=== PATIENT | female | born 1985 | race Caucasian/White ===

== ENCOUNTER 2016-05-07 21:55 | Emergency (ER) | payer OTHER ==
[2016-05-07 22:08] VITALS: BP 143/98; PULSE 82; TEMP 98.1; BMI 40.8
[2016-05-07] MEDS ORDERED: KETOROLAC TROMETHAMINE 60 MG/2 ML VIAL IM ONE (23:58)
--- NOTE | 2016-05-07 23:58 | PDOC ---
History of Present Illness - General History Source: Patient Exam Limitations: No Limitations - History of Present Illness Initial Comments: 05/08/16 00:48 The patient is a 31 year old female with significant past medical history of hypertension, asthma, and hypothyroidism who presents to the ED with 3 days of right upper pain. Patient reports her pain is localized in the trapezius region. She states she periodically gets pain and discomfort to the right upper trapezius and neck region. Patient denies trauma, heavy lifting, or physical exertion. Patient denies diaphoresis, lightheadedness, chest pain, SOB, nausea, or vomiting. Patient states she smokes cigarettes, but denies oral contraceptives. She denies any recent travels or sick contacts. She states she recently had given about 2 months ago. The patient denies fever, chills, cough, abdominal pain, and diarrhea. Allergies: penicillin Social History: No alcohol, tobacco, or drug use reported. Past Surgical History: None reported PCP: Dr. Clarissa Ibarra <Mackenzie Ortega - Last Filed: 05/08/16 02:51> - General History Source: Patient <César Leon - Last Filed: 05/08/16 02:56> - General Chief Complaint: Pain Stated Complaint: PAIN Time Seen by Provider: 05/07/16 23:54 Past History <Mackenzie Ortega - Last Filed: 05/08/16 02:51> - Past Medical History Asthma: Yes Cancer: No Cardiac Disorders: No Diabetes: No HTN: Yes Seizures: No Thyroid Disease: Yes (hypo) - Immunization History Immunization Up to Date: Yes - Psycho/Social/Smoking Cessation Hx Anxiety: No Suicidal Ideation: No Smoking History: Former smoker Have you smoked in the past 12 months: Yes Number of Cigarettes Smoked Daily: 5 Information on smoking cessation initiated: No Hx Alcohol Use: No Drug/Substance Use Hx: No Substance Use Type: None Hx Substance Use Treatment: No <César Leon - Last Filed: 05/08/16 02:56> - Past Medical History Allergies/Adverse Reactions: Allergies Allergy/AdvReac Type Severity Reaction Status Date / Time Penicillins Allergy Mild Difficulty Verified 05/07/16 22:04 Breathing Home Medications: Ambulatory Orders Levothyroxine [Synthroid -] 100 mcg PO DAILY 12/11/14 Vit/Iron Fumarate/FA [ Tablet] 1 each PO DAILY 01/29/16 Salmeterol/Fluticasone [Advair 100Mcg/50Mcg -] 1 inh IH BID 01/29/16 Ferrous Sulfate 325 mg PO BID 03/19/16 Nifedipine ER [Procardia XL -] 60 mg PO DAILY #30 tab.er.24 03/25/16 Review of Systems - Review of Systems Able to Perform ROS?: Yes Comments:: 05/08/16 00:48 CONSTITUTIONAL: Absent: fever, no chills, no fatigue EYES: Absent: visual changes ENT: Absent: ear pain, no sore throat CARDIOVASCULAR: Absent: chest pain, no palpitations RESPIRATORY: Absent: cough, no SOB GI: Absent: abdominal pain, no nausea, no vomiting, no constipation, no diarrhea GENITOURINARY: Absent: dysuria, no frequency, no hematuria MUSKULOSKELETAL: +right upper arm pain, neck pain Absent: back pain SKIN: Absent: rash NEURO: Absent: headache <Mackenzie Ortega - Last Filed: 05/08/16 02:51> *Physical Exam - Vital Signs Last Vital Signs Temp Pulse Resp BP Pulse Ox 98.1 F 82 20 143/98 99 05/07/16 22:05 05/07/16 22:05 05/07/16 22:05 05/07/16 22:05 05/07/16 22:05 - Physical Exam Comments: 05/08/16 00:48 GENERAL: Well-appearing, well-nourished. No apparent distress. HEENT: Normocephalic, atraumatic. PERRL, EOM intact. CARDIOVASCULAR: Normal S1, S2. Regular rate and rhythm. PULMONARY: Clear to auscultation bilaterally. ABDOMEN: Soft, non-distended, non-tender. EXTREMITIES: Normal ROM in all four extremities. No gross deformities. Mildly tender in the right trapezius, right posteriorly shoulder and right tricep region. No erythema. Good ROM to the right shoulder and elbow. SKIN: Warm, dry. No rash NEUROLOGICAL: No focal neurological deficits. <Mackenzie Ortega - Last Filed: 05/08/16 02:51> - Vital Signs Last Vital Signs Temp Pulse Resp BP Pulse Ox 98.1 F 82 20 143/98 99 05/07/16 22:05 05/07/16 22:05 05/07/16 22:05 05/07/16 22:05 05/07/16 22:05 <César Leon - Last Filed: 05/08/16 02:56> ED Treatment Course - ADDITIONAL ORDERS Additional order review: Laboratory Results 05/08/16 00:03 Urine HCG, Qual Negative - RADIOLOGY Radiograph Interpretation: 05/08/16 01:13 EXAM: VENOUS DUPLEX UNILATERAL Reviewed by Imaging second facing baster: No evidence for DVT right upper extremity. 05/08/16 02:52 EXAM: CT CERVICAL SPINE WITHOUT CONTRAST Reviewed by Imaging second facing baster: Small right central protrusion-type disc herniation C2-C3 causing minimal canal stenosis. Posterior disc-osteophyte complexes C4-C5 through C6-C7 causing areas of minimal to moderate canal stenosis and neural foraminal stenosis, worst at C6-C7. No acute fracture or malalignment. Straightening of cervical lordosis, possibly due to positioning or muscle spasm. - Medications Given in the ED: ED Medications Discontinued Medications Generic Name Dose Route Start Last Admin Trade Name Titusq PRN Reason Stop Dose Admin Ketorolac Tromethamine 60 mg 05/07/16 23:58 05/08/16 00:09 Toradol Injection - IM 05/07/16 23:59 60 mg ONCE ONE Administration <Mackenzie Ortega - Last Filed: 05/08/16 02:51> Medical Decision Making - Medical Decision Making 05/08/16 02:54 Dr. Leon: The scribe's documentation has been prepared under my direction and personally reviewed by me in its entirery. I confirm that the note above accurately reflects all work, treatment, procedures, and medical decision making performed by me. US of right arm and Ct scan of cervical spine are negative. Pt doesn't want any pain medication as she says they make her very sedated. Pt advised to follow up with her doctor if symptoms don't get better <César Leon - Last Filed: 05/08/16 02:56> *DC/Admit/Observation/Transfer - Attestations Scribe Attestion: 05/08/16 00:48 Documentation prepared by Mackenzie Ortega, acting as medical observer for César Leon MD <Mackenzie Ortega - Last Filed: 05/08/16 02:51> - Discharge Dispostion Admit: No <César eLon - Last Filed: 05/08/16 02:56> Diagnosis at time of Disposition: Right arm pain - Discharge Dispostion Disposition: HOME Condition at time of disposition: Stable - Referrals Referrals: Clarissa Ibarra [Primary Care Provider] - Donavon Roberts MD [Staff Physician] - - Patient Instructions Printed Discharge Instructions: DI for Arm Pain Additional Instructions: Please follow up with your primary care doctor for re-evaluation if symptoms don 't improve.
[2016-05-08] MEDS ORDERED: KETOROLAC TROMETHAMINE 60 MG/2 ML VIAL ONE (00:05)
== END 2016-05-08 03:11 | disposition home or self-care (01) ==
LOC: JER 21:55 → JERFT 21:55 → JER 05-08 03:11
PROC: 3E0233Z Introduction of Anti-inflammatory into Muscle, Percutaneous Approach (ICD-10-PCS; principal; 2016-05-07)
DX: M79.601 Pain in right arm (principal); Z87.891 Personal history of nicotine dependence; J45.909 Unspecified asthma, uncomplicated; I10 Essential (primary) hypertension; E03.9 Hypothyroidism, unspecified
CPT/HCPCS: 72125-TC; 84703; 93971; 96372; 99281-25

== ENCOUNTER 2017-05-11 09:12 | Emergency (ER) | payer OTHER ==
[2017-05-11 09:23] VITALS: BP 169/94; PULSE 95; TEMP 98.1; BMI 43.4
--- NOTE | 2017-05-11 09:52 | PDOC ---
History of Present Illness - General Chief Complaint: Toothache Stated Complaint: TOOTHACHE Time Seen by Provider: 05/11/17 09:44 History Source: Patient Exam Limitations: No Limitations - History of Present Illness Initial Comments: 05/11/17 09:47 32-year-old female currently 9 weeks presents to the ED with right upper quadrant tooth pain which is causing her difficulty sleeping eating and speaking secondary to discomfort. Patient states has had this pain intimately for the past few years which has worsened in severity over the past week. Patient states has been Tylenol with minimal affect and is concerned that she may have an infection now. Patient states has prolonged visiting the dentist since she had a bad experience with her last visit. Patient states does have insurance and plans to find a new dentist this week. Patient denies headache, ear pain, dizziness, fever, chills or difficulty swallowing. Timing/Duration: getting worse, intermittent (2 years) Severity: moderate Associated Symptoms: reports: denies symptoms Past History - Travel Traveled outside of the country in the last 30 days: No - Past Medical History Allergies/Adverse Reactions: Allergies Allergy/AdvReac Type Severity Reaction Status Date / Time Penicillins Allergy Mild Difficulty Verified 05/11/17 09:23 Breathing Home Medications: Ambulatory Orders Levothyroxine [Synthroid -] 100 mcg PO DAILY 12/11/14 Vit/Iron Fum/Folic AC [ Tablet] 1 each PO DAILY 01/29/16 Salmeterol/Fluticasone [Advair 100Mcg/50Mcg -] 1 inh IH BID 01/29/16 Ferrous Sulfate 325 mg PO BID 03/19/16 Nifedipine ER [Procardia XL -] 60 mg PO DAILY #30 tab.er.24 03/25/16 Asthma: Yes Cancer: No Cardiac Disorders: No COPD: No Diabetes: No HTN: Yes Seizures: No Thyroid Disease: Yes (hypo) - Reproductive History Is Patient Now?: Yes - Immunization History Immunization Up to Date: Yes - Suicide/Smoking/Psychosocial Hx Smoking History: Former smoker Have you smoked in the past 12 months: Yes Number of Cigarettes Smoked Daily: 5 Information on smoking cessation initiated: No Hx Alcohol Use: No Drug/Substance Use Hx: No Substance Use Type: None Hx Substance Use Treatment: No Patient Lives Alone: No Lives with/in: spouse/SO Review of Systems - Review of Systems Able to Perform ROS?: Yes Constitutional: No: Symptoms Reported HEENTM: Yes: Mouth Pain, Dental Problems Respiratory: No: Symptoms reported Integumentary: No: Lumps Neurological: No: Headache, Dizziness *Physical Exam - Vital Signs Last Vital Signs Temp Pulse Resp BP Pulse Ox 98.1 F 95 H 18 169/94 99 05/11/17 09:20 05/11/17 09:20 05/11/17 09:20 05/11/17 09:20 05/11/17 09:20 - Physical Exam General Appearance: Yes: Nourished, Appropriately Dressed. No: Apparent Distress HEENT: positive: Other (#2 tooth with noted buildup of plaque at the gumline along with gingivitis. Noted amalgam filling covering surface of tooth. No obvious abscess noted.surrounding teeth intact) Cardiovascular: positive: Regular Rhythm, Regular Rate. negative: Murmur Integumentary: positive: Normal Color, Warm, Moist Neurologic: positive: Motor Strength 5/5 (ambulatory) Medical Decision Making - Medical Decision Making 05/11/17 09:50 Patient currently 9 weeks complaining of right upper quadrant tooth pain. Patient will be prescribed amoxicillin along with Tylenol Extra Strength. Patient encouraged contact a local dentist for evaluation. *DC/Admit/Observation/Transfer Diagnosis at time of Disposition: Pain, dental - Discharge Dispostion Disposition: HOME Condition at time of disposition: Good - Referrals Referrals: Clarissa Ibarra [Primary Care Provider] - - Patient Instructions Printed Discharge Instructions: DI for Dental Pain, DI for Tooth Decay Additional Instructions: Please take medication as prescribed until completed. May apply heating pad to the affected area. Please follow-up with dentist as discussed. Return to ED if any given time if your symptoms worsen prior to your appointment. - Post Discharge Activity
== END 2017-05-11 10:06 | disposition home or self-care (01) ==
LOC: JERFT 09:12
DX: O99.89 Other specified diseases and conditions complicating pregnancy, childbirth and the puerperium (principal); K08.89 Other specified disorders of teeth and supporting structures; O16.1 Unspecified maternal hypertension, first trimester; O99.281 Endocrine, nutritional and metabolic diseases complicating pregnancy, first trimester; E03.9 Hypothyroidism, unspecified; O99.511 Diseases of the respiratory system complicating pregnancy, first trimester; Z3A.09 9 weeks gestation of pregnancy
CPT/HCPCS: 99281-25

== ENCOUNTER 2017-11-30 19:00 | Emergency (ER) | payer OTHER ==
[2017-11-30 19:24] VITALS: BMI 45.7
[2017-11-30 22:19] VITALS: BP 125/83; PULSE 93; TEMP 98
== END 2017-11-30 21:20 | disposition home or self-care (01) ==
LOC: JER 19:00
DX: Z53.21 Procedure and treatment not carried out due to patient leaving prior to being seen by health care provider (principal)
CPT/HCPCS: 99281-25

== ENCOUNTER 2017-12-15 08:20 | Inpatient (IN) | payer OTHER ==
[2017-12-15 09:36] LABS: URINE APPEARANCE CLOUDY; URINE BILIRUBIN NEGATIVE (<2.0 mg/dL); URINE COLOR YELLOW; URINE GLUCOSE (UA) NEGATIVE (NEGATIVE); URINE KETONE NEGATIVE (NEGATIVE); URINE LEUK ESTERASE 3+ (NEGATIVE); URINE NITRITE NEGATIVE (NEGATIVE); URINE PROTEIN 2+ (NEGATIVE); URINE UROBILINOGEN NEGATIVE mg/dL (0.2-1.0)
[2017-12-15 09:38] LABS: BASO % 0.4 % (0-2.0); EOS % 1.6 % (0-4.5); HEMATOCRIT 31.1 % (32.4-45.2); HEMOGLOBIN 10.3 GM/dL (10.7-15.3); LYMPH % 19.6 % (8-40); MCH 29.1 pg (25.7-33.7); MCHC 33.2 g/dl (32.0-36.0); MEAN CELL VOLUME 87.8 fl (80-96); MEAN PLT VOLUME 7.5 fl (7.5-11.1); MONO % 7.9 % (3.8-10.2); NEUT % 70.5 % (42.8-82.8); PLATELET COUNT 403 K/MM3 (134-434); RBC 3.54 M/mm3 (3.60-5.2); RDW 14.2 % (11.6-15.6); WHITE BLOOD COUNT 15.4 K/mm3 (4.0-10.0)
[2017-12-15 09:39] LABS: EPI CELLS MODERATE /HPF (FEW); URINE BACTERIA RARE /hpf (NONE SEEN); URINE MUCUS RARE
[2017-12-15 09:47] LABS: INR 0.88 (0.83-1.09); PROTHROMBIN TIME (PATIENT) 10.4 SEC (9.7-13.0)
[2017-12-15 09:50] LABS: ACTIVATED PTT 27.9 SECONDS (25.2-36.5)
[2017-12-15] MEDS ORDERED: BUTORPHANOL TARTRATE 1 MG/ML VIAL IVPB ONE (10:02)
[2017-12-15 10:07] LABS: ALBUMIN 2.5 g/dl (3.4-5.0); ALK PHOS 139 U/L (45-117); ANION GAP 6 MMOL/L (8-16); BILIRUBIN,TOTAL 0.3 mg/dL (0.2-1); BLOOD UREA NITROGEN 9 mg/dL (7-18); CALCIUM 9.4 mg/dL (8.5-10.1); CHLORIDE 108 mmol/L (98-107); CO2 23 mmol/L (21-32); CREATININE 0.7 mg/dL (0.55-1.3); GAMMA GLUTAMYL TRANSPEPTIDASE 19 U/L (5-85); GLUCOSE,RANDOM 103 mg/dL (74-106); POTASSIUM 4.1 mmol/L (3.5-5.1); SGOT/AST 12 U/L (15-37); SGPT/ALT 16 U/L (13-61); SODIUM 136 mmol/L (136-145); TOT PROT 6.4 g/dl (6.4-8.2); URIC ACID 6.3 mg/dL (2.6-7.2)
--- NOTE | 2017-12-15 10:09 | HP ---
Past Medical History - Admission Chief Complaint: IOL for CHTN History of Present Illness: 32yo @ 38wks here for IOL for CHTN. Preg c/b CHTN, hypothyroidism, obesity - Past Medical History Cardiovascular: Yes: HTN Pulmonary: Yes: Asthma ...: 4 ...Para: 3 ...Term: 3 ...: 0 ... Weeks Gestation by Dates: 38.0 ...EDC by Dates: 12/29/17 Endocrine: Yes: Hypothyroidism - Past Surgical History Hx Myomectomy: No Hx Transabdominal Cerclage: No - Smoking History Smoking history: Never smoked Have you smoked in the past 12 months: No Aproximately how many cigarettes per day: 5 - Alcohol/Substance Use Hx Alcohol Use: No History of Substance Use: reports: None - Social History Usual Living Arrangement: Yes: With Spouse ADL: Independent History of Recent Travel: No Home Medications - Allergies Allergies/Adverse Reactions: Allergies Allergy/AdvReac Type Severity Reaction Status Date / Time Penicillins Allergy Severe Difficulty Verified 12/15/17 09:05 Breathing pollen extracts Allergy Mild Itching Verified 12/15/17 09:05 dust Allergy Mild Itching Uncoded 12/15/17 09:05 - Home Medications Home Medications: Ambulatory Orders Levothyroxine [Synthroid -] 137 mcg PO DAILY 12/11/14 Vit/Iron Fum/Folic AC [ Tablet] 1 each PO DAILY 01/29/16 Salmeterol/Fluticasone [Advair 100Mcg/50Mcg -] 1 inh IH BID 01/29/16 Ferrous Sulfate 325 mg PO BID 03/19/16 Albuterol Sulfate Inhaler - [Ventolin Hfa Inhaler -] 1 - 2 inh PO QID 12/15/17 Aspirin [ASA -] 81 mg PO DAILY 12/15/17 Cetirizine HCl [Zyrtec -] 10 mg PO DAILY 12/15/17 Review of Systems - Review of Systems Constitutional: denies: No Symptoms, Chills, Diaphoresis, Fever, Lethargy, Loss of Appetite, Malaise, Night Sweats, Unintentional Wgt. Loss, Weakness, Other Eyes: denies: No Symptoms, Blind Spots, Blurred Vision, Double Vision, Eye Pain , Floaters, Photophobia, Recent Change in Vision, Other HENT: denies: No Symptoms, Difficult Swallowing, Ear Discharge, Ear Pain, Epistaxis, Gingival Bleeding, Hearing Loss, Mouth Swelling, Nasal Congestion, Ocular Prosthesis, Throat Pain, Toothache, Ringing in Ears, Other Neck: denies: No Symptoms, Decreased ROM, Lumps, Pain on Movement, Stiffness, Swollen Glands, Tenderness, Other Cardiovascular: denies: No Symptoms, Chest Pain, Edema, Palpitations, Shortness of Breath, Other Respiratory: denies: No Symptoms, Cough, Exercise Intolerance, Hemoptysis, Orthopnea, PND, Snoring, SOB, SOB on Exertion, Wheezing, Other Gastrointestinal: denies: No Symptoms, Abdominal Pain, Bloating, Constipation, Diarrhea, Dysphagia, Indigestion, Melena, Nausea, Rectal Bleeding, Vomiting, Vomiting Blood, Other Genitourinary: denies: No Symptoms, Burning, Discharge, Dysuria, Flank Pain, Frequency, Hematuria, Incontinence, Lesions, Menses, Pain, Testicular Mass, Testicular Pain, Testicular Swelling, Urgency, Vaginal Bleeding, Other Breasts: denies: No Symptoms Reported, See HPI, Breast Implants, Discharge from Nipple, Lumps, Pain, Skin Changes, Other Musculoskeletal: denies: No Symptoms, Back Pain, Crepitus, Decreased ROM, Extremity Pain, Joint Pain, Joint Swelling, Muscle Pain, Muscle Cramps, Muscle Weakness, Other Integumentary: denies: No Symptoms, Blister, Bruising, Change in Color, Eczema, Erythema, Incision, Lesions, Lump, Pallor, Pruritis, Rash, Wound, Other Neurological: denies: No Symptoms, Change in LOC, Change in Speech, Confusion, Dizziness, Headache, Incoordination, Numbness, Parasthesia, Pre-Existing Deficit , Seizure, Syncope, Tremors, Unsteady Gait, Weakness, Other Endocrine: denies: No Symptoms, Excessive Sweating, Flushing, Increased Hunger, Increased Thirst, Intolerance to Cold, Intolerance to Heat, Unexplained Weight Gain, Unexplained Weight Loss, Other Hematology/Lymphatic: denies: No Symptoms, Easily Bruised, Excessive Bleeding, Swollen Glands, Other Psychiatric: denies: No Symptoms, Altered Sleep Pattern, Anxiety, Depression, Hallucinations, Panic, Paranoia, Suicidal, Other Physical Exam - Maternity Constitutional: No: Well Nourished, No Distress, Calm, Anxious, Ashen, Cachectic , Diaphoresis, Mild Distress, Moderate Distress, Severe Distress, Obese, Pallor , Poor Hygeine, Thin, Other Eyes: No: WNL, Conjunctiva Clear, EOM Intact, Cataracts, Diplopia, Occular Prosthesis, PERRL, Ptosis, Sclera Icterus, Tearing, Other HENT: No: WNL, Atraumatic, Normocephalic, Drooling, Epistaxis, Hoarseness, Nasal Congestion, Pharyngeal Erythema, Rhinnorhea, Thrush, Tonsillar Exudate, Other Neck: No: WNL, Supple, Trachea Midline, Decreased ROM, Lymphadenopathy, Rigid, Tenderness, Thyromegaly, Other Cardiovascular: No: WNL, Regular Rate and Rhythm, Bradycardia, Tachycardia, Pulse Irregular, Bruit, JVD, Gallop, Murmur, Rub, S1, S2, S3, S4, Varicosities, Other Breast(s): No: WNL, Left, Right, Breast Implants, Dimpling, Discharge from Nipple, Gynecomastia, Mass, Nipple Inversion, Skin Changes, Other - Abdominal Exam/OB Number of Fetuses: Single Presentation: Vertex Contractions: Yes Regularity: Irregular Intensity: Mild Monitor Mode: External Category: I Accelerations: Uniform Decelerations: None - Vaginal Exam/OB Vaginal Bleediing: No Speculum Exam: No Dilatation (cm): 4 Amniotic Membrane Status: Intact - Physical Exam Edema: Yes - Labs Lab Results: CBC, BMP 12/15/17 09:15 Assessment/Plan 32yo @ 38.0wks here for IOL for CHTN -Admit to L&D -IVFs -PIH labs, wnl -Pitocin/AROM induction -Cat 1 tracing -Anticipate Lyndsay Abrams MD
[2017-12-15] MEDS ORDERED: OXYTOCIN 30 UNITS in 0.9% NS 30 UNIT/500 ML INFUS.BAG IVPB SCH (10:15)
[2017-12-15] MEDS ORDERED: ELECTROLYTE-148 SOLN 1,000 ML IV SCH (10:15)
[2017-12-15 10:22] VITALS: BMI 45.7
[2017-12-15] MEDS ORDERED: OXYTOCIN 30 UNITS in 0.9% NS 30 UNIT/500 ML INFUS.BAG IVPB ONE (10:52)
--- NOTE | 2017-12-15 14:47 | PN ---
Progress Note, Labor Vaginal Exam #1 Labor Exam Date: 12/15/17 Labor Exam Time: 14:46 Heart Rate (range): Cat 1 Dilatation: 4 Effacement (%): 50 Amniotic Membrane Status: Ruptured Presentation: Vertex/Position Station: -3 (Forebag AROM'd, clear fluid) Remarks: AROM forebag, clears Continue Pitocin Anticipate Zackary Abrams MD
--- NOTE | 2017-12-15 16:17 | PN ---
Progress Note, Labor Vaginal Exam #2 Labor Exam Date: 12/15/17 Labor Exam Time: 16:15 Dilatation: 5 Effacement (%): 70 Amniotic Membrane Status: Ruptured Presentation: Vertex/Position Station: -3 (Pt getting more uncomfortable FHT moderate variability, + accels, one late decel to 100's with good recovery Anticipate CHRISTIANE Abrams MD )
[2017-12-15] MEDS ORDERED: BUTORPHANOL TARTRATE 1 MG/ML VIAL ONE ×2 (16:59)
[2017-12-15] MEDS ORDERED: FENTANYL/BUPIVACAINE/NS/PF - PCEA - 50 ML DISP.SYRIN EP ONE (19:54)
[2017-12-15] MEDS ORDERED: OXYTOCIN 20 UNITS in 0.9% NS 20 UNIT/1,000 ML INFUS.BAG IV ONE ×2 (20:23→21:50)
[2017-12-15] MEDS ORDERED: LIDOCAINE HCL 1% PRESERVATIVE FREE - 30ML VIAL ONE (20:35)
[2017-12-15] MEDS: OXYTOCIN 20 UNITS in 0.9% NS 20 UNIT/1,000 ML INFUS.BAG IV SCH ×2 (20:45→22:12)
[2017-12-15] MEDS ORDERED: ACETAMINOPHEN 325 MG TABLET (FP) PO PRN (20:52)
[2017-12-15] MEDS ORDERED: BENZOCAINE 20% 57 GM BOTTLE TP PRN (20:52)
[2017-12-15] MEDS ORDERED: BENZOCAINE 28 GM HEMORRHOIDAL OINTMENT TP PRN (20:52)
[2017-12-15] MEDS ORDERED: METHYLERGONOVINE MALEATE 0.2 MG/1 ML AMP IM PRN (20:52)
[2017-12-15] MEDS ORDERED: BISACODYL 10 MG SUPP.RECT RC PRN (20:52)
[2017-12-15] MEDS ORDERED: IBUPROFEN 600 MG TABLET (FP) PO PRN (20:52)
[2017-12-15] MEDS ORDERED: WITCH HAZEL 50% (TUCKS) 40 PAD/JAR PAD TP PRN (20:52)
--- NOTE | 2017-12-15 20:52 | PN ---
Delivery - Delivery Vaginal Delivery: Spontaneous Episiotomy/Laceration: None EBL (cc): 250 Delivery, Single - Feeding Plan Initial Plan: Elected not to breastfeed exclusively throughout hospitalization Remarks - Remarks Remarks: Normal spontaneous vaginal delivery of a live infant boy over intact perineum. Nose / Oropharynx suctioned @ perineum. Nuchal cord x 1 clamped and cut. Placenta expelled spontaneously intact.
[2017-12-16] MEDS: FERROUS SO4 325 MG TABLET (FP) PO SCH ×3 (00:32→21:52)
[2017-12-16 08:43] LABS: BASO % 0.5 % (0-2.0); EOS % 0.8 % (0-4.5); HEMATOCRIT 29.2 % (32.4-45.2); HEMOGLOBIN 9.7 GM/dL (10.7-15.3); LYMPH % 17.9 % (8-40); MCH 29.1 pg (25.7-33.7); MCHC 33.1 g/dl (32.0-36.0); MEAN CELL VOLUME 87.9 fl (80-96); MEAN PLT VOLUME 7.6 fl (7.5-11.1); MONO % 5.6 % (3.8-10.2); NEUT % 75.2 % (42.8-82.8); PLATELET COUNT 358 K/MM3 (134-434); RBC 3.32 M/mm3 (3.60-5.2); RDW 13.8 % (11.6-15.6); WHITE BLOOD COUNT 19.1 K/mm3 (4.0-10.0)
[2017-12-16] MEDS ORDERED: FLU VACCINE QUAD 60 MCG/0.5 ML (MDV 18-19) IM ONE (10:00)
[2017-12-16] MEDS: PRENATAL VITAMINS W/ FOLIC ACID TABLET (FP) PO SCH (10:30)
--- NOTE | 2017-12-16 10:56 | PN ---
Post Progress Note - Subjective Subjective: 32 yo Para 4 status post vaginal delivery, seen and evaluated. Doing well. Post Day: 1 Type of Delivery: Vital Signs: Vital Signs Temperature 98.2 F 12/16/17 09:22 Pulse Rate 75 12/16/17 09:22 Respiratory Rate 20 12/16/17 09:22 Blood Pressure 145/71 12/16/17 09:22 O2 Sat by Pulse Oximetry (%) Breast Exam: Yes: Soft Uterus: Yes: Fundus Firm Abdomen/GI: Yes: Abdomen soft, Tolerating PO Lochia: Yes: Rubra Lochia, amount: Moderate Extremities: Yes: Calves non-tender Perineum: Yes: Intact Activity: Ambulating - Labs Labs: CBC WBC 19.1 K/mm3 (4.0-10.0) H 12/16/17 07:56 RBC 3.32 M/mm3 (3.60-5.2) L 12/16/17 07:56 Hgb 9.7 GM/dL (10.7-15.3) L 12/16/17 07:56 Hct 29.2 % (32.4-45.2) L 12/16/17 07:56 MCV 87.9 fl (80-96) 12/16/17 07:56 MCH 29.1 pg (25.7-33.7) 12/16/17 07:56 MCHC 33.1 g/dl (32.0-36.0) 12/16/17 07:56 RDW 13.8 % (11.6-15.6) 12/16/17 07:56 Plt Count 358 K/MM3 (134-434) 12/16/17 07:56 MPV 7.6 fl (7.5-11.1) 12/16/17 07:56 Absolute Neuts (auto) 14.3 K/mm3 (1.5-8.0) H 12/16/17 07:56 Neutrophils % 75.2 % (42.8-82.8) 12/16/17 07:56 Lymphocytes % 17.9 % (8-40) 12/16/17 07:56 Monocytes % 5.6 % (3.8-10.2) 12/16/17 07:56 Eosinophils % 0.8 % (0-4.5) 12/16/17 07:56 Basophils % 0.5 % (0-2.0) 12/16/17 07:56 Nucleated RBC % 0 % (0-0) 12/16/17 07:56 Retic Count 1.85 % (0.5-1.5) H D 12/15/17 09:15 Haptoglobin 208 mg/dL (34-200) H 12/15/17 09:15 Problem List - Problems (1) Status post normal vaginal delivery Code(s): [id number] - Assessment/Plan Status post vaginal delivery Stable Continue routine care
[2017-12-16] MEDS ORDERED: SENNOSIDES/DOCUSATE COMBO (SENNA PLUS) TABLET (UD) PO PRN (22:00)
[2017-12-16] MEDS: OXYTOCIN 20 UNITS in 0.9% NS 20 UNIT/1,000 ML INFUS.BAG IV SCH (23:12)
--- NOTE | 2017-12-17 08:09 | DS ---
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 Vital Signs: Vital Signs Temperature 99.2 F 12/16/17 22:00 Pulse Rate 90 12/16/17 22:00 Respiratory Rate 18 12/16/17 22:00 Blood Pressure 129/68 12/16/17 22:00 O2 Sat by Pulse Oximetry (%) Constitutional: Yes: Well Nourished Eyes: Yes: Conjunctiva Clear HENT: Yes: Atraumatic Neck: Yes: Supple Cardiovascular: Yes: Regular Rate and Rhythm Respiratory: Yes: Regular Gastrointestinal: Yes: Normal Bowel Sounds ...Rectal Exam: Yes: WNL Renal/: Yes: WNL Pelvis: Yes: WNL External Genitalia: Yes: Normal Vaginal Exam: Yes: Normal Cervix: Yes: Normal Uterus: Yes: Firm ....Post : Yes: Uterus firm, Moderate lochia serosa Breast(s): Yes: WNL Musculoskeletal: Yes: WNL Extremities: Yes: WNL Neurological: Yes: Alert, Oriented ...Motor Strength: WNL Psychiatric: Yes: Alert, Oriented Labs: CBC, BMP 12/16/17 07:56 12/15/17 09:15 Delivery - Delivery Vaginal Delivery: Spontaneous Type of Anesthesia: None Episiotomy/Laceration: None EBL (cc): 250 Delivery, Single - Stages of Labor Date 1st Stage Initiatied: 12/15/17 Time 1st Stage Initiated: 17:00 Date 2nd Stage Initiated: 12/15/17 Time 2nd Stage Initiated: 20:30 Date of Delivery: 12/15/17 Time of Delivery: 20:39 Time Placenta Delivered: 20:41 - Condition of Digital Publishing Specialist/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 Technician Present: [place]: [employer] hancock Infant Gender: Male Weight: 6 lb 10 oz Position: Right, OA Total Hours ROM (Hrs/Mins): 8HOUR/29MIN - 1 Minute Total Score: 9 5 Minutes Total Score: 9 - Feeding Plan Initial Plan: Elected not to breastfeed exclusively throughout hospitalization Discharge Summary Reason For Visit: INDUCTION OF LABOR Current Active Problems Status post normal vaginal delivery (Acute) Procedures: Principal: Normal spontaneous vaginal delivery Hospital Course: Routine care Condition: Good - Instructions Diet, Activity, Other Instructions: Physical activity Resume your normal everyday activity as tolerated no heavy lifting or exercise until seen by your surgeon. You may walk unlimited maulik of and climb stairs. You may resume driving the car when you feel safe and comfortable behind the wheel. No sexual activity as instructed. Wound care If you have a bandage, leave it on, and keep dry for 48-72 hours. After that time discard the outer bandage. If they are tapes on the skin under the out of bandage leave them in place. They will peel off in the next 7 to 10 days. Do Not Peel them off. You may shower the day after surgery. If there are tapes present on the skin, you may shower over them. Diet There are no dietary restrictions. Eat healthy, high-fiber foods. Drink 6 to 8 glasses of liquid each day. This will assist in keeping your bowels are regular. Pain management You may take Tylenol or acetaminophen or Ibuprofen (for example, Motrin, Advil etc.) from my pain prescription medication is ordered should be taken as prescribed for moderate to severe pain. Call MD for any of the following: Severe pain not relieved by medication Fever of 101 or higher Excessive bleeding or drainage on dressing Inability to urinate Disposition: HOME - Home Medications Comprehensive Discharge Medication List: Ambulatory Orders Levothyroxine [Synthroid -] 137 mcg PO DAILY 12/11/14 Vit/Iron Fum/Folic AC [ Tablet] 1 each PO DAILY 01/29/16 Salmeterol/Fluticasone [Advair 100Mcg/50Mcg -] 1 inh IH BID 01/29/16 Ferrous Sulfate 325 mg PO BID 03/19/16 Albuterol Sulfate Inhaler - [Ventolin Hfa Inhaler -] 1 - 2 inh PO QID 12/15/17 Aspirin [ASA -] 81 mg PO DAILY 12/15/17 Cetirizine HCl [Zyrtec -] 10 mg PO DAILY 12/15/17
[2017-12-17 09:55] VITALS: PULSE 85; TEMP 98.1
[2017-12-17] MEDS ORDERED: LABETALOL HCL 200 MG TABLET (FP) PO ONE (10:15)
[2017-12-17] MEDS: FERROUS SO4 325 MG TABLET (FP) PO SCH (10:23)
[2017-12-17] MEDS: PRENATAL VITAMINS W/ FOLIC ACID TABLET (FP) PO SCH (10:23)
[2017-12-17 11:06] LABS: URINE APPEARANCE SLCLOUDY; URINE BILIRUBIN NEGATIVE (<2.0 mg/dL); URINE COLOR LTYELLOW; URINE GLUCOSE (UA) NEGATIVE (NEGATIVE); URINE KETONE NEGATIVE (NEGATIVE); URINE LEUK ESTERASE 2+ (NEGATIVE); URINE NITRITE NEGATIVE (NEGATIVE); URINE PROTEIN 1+ (NEGATIVE); URINE UROBILINOGEN NEGATIVE mg/dL (0.2-1.0)
[2017-12-17 11:07] LABS: RETICULOCYTES 2.16 % (0.5-1.5)
[2017-12-17 11:10] LABS: EPI CELLS FEW /HPF (FEW); URINE MUCUS RARE
[2017-12-17 11:32] LABS: URIC ACID 6.8 mg/dL (2.6-7.2)
[2017-12-17 12:31] VITALS: BP 139/75
== END 2017-12-17 14:00 | disposition home or self-care (01) | DRG 560 ==
LOC: JLDR 08:20 → J3W 22:45
PROVIDERS: ADMIT Obstetrics & Gynecology; ATTEND Obstetrics & Gynecology
PROC: 10E0XZZ Delivery of Products of Conception, External Approach (ICD-10-PCS; principal; 2017-12-15)
PROC: 3E0P7VZ Introduction of Hormone into Female Reproductive, Via Natural or Artificial Opening (ICD-10-PCS; 2017-12-15)
DX: O10.02 Pre-existing essential hypertension complicating childbirth (principal); O69.81X0 Labor and delivery complicated by cord around neck, without compression, not applicable or unspecified; O99.283 Endocrine, nutritional and metabolic diseases complicating pregnancy, third trimester; E03.9 Hypothyroidism, unspecified; O26.893 Other specified pregnancy related conditions, third trimester; J45.909 Unspecified asthma, uncomplicated; Z3A.38 38 weeks gestation of pregnancy; Z37.0 Single live birth
CPT/HCPCS: 36415; 59409; 80053; 81003; 81015; 82977; 83010; 84450; 84460; 84550; 85025; 85032; 85044; 85610; 85730; 86593; 86850; 86900; 86901

== ENCOUNTER 2017-12-24 16:45 | Emergency (ER) | payer OTHER ==
[2017-12-24] MEDS ORDERED: ALBUTEROL SO4 2.5/IPRATROPIUM 0.5 INH SOL 3 ML VIAL.NEB. NEB ONE ×3 (16:56→17:57)
--- NOTE | 2017-12-24 16:56 | PDOC ---
Rapid Medical Evaluation Time Seen by Provider: 12/24/17 16:53 Medical Evaluation: Allergies Allergy/AdvReac Type Severity Reaction Status Date / Time Penicillins Allergy Severe Difficulty Verified 12/15/17 09:05 Breathing pollen extracts Allergy Mild Itching Verified 12/15/17 09:05 dust Allergy Mild Itching Uncoded 12/15/17 09:05 12/24/17 16:53 I have performed a brief in-person evaluation of this patient. The patient presents with a chief complaint of: cough x10 days Pertinent physical exam findings: End-expiratory wheezes present. Speaking full sentences. I have ordered the following: urine, CXR, nebs The patient will proceed to the ED for further evaluation. Discharge Disposition - Diagnosis Cough - Referrals - Patient Instructions - Post Discharge Activity
[2017-12-24 16:57] VITALS: BP 176/76; PULSE 56; TEMP 98.4; BMI 44.4
[2017-12-24] MEDS ORDERED: DEXAMETHASONE LIQUID 0.5 MG/5 ML 240 ML BULK BOTTLE PO ONE (17:34)
[2017-12-24 17:36] LABS: URINE APPEARANCE SLCLOUDY; URINE BILIRUBIN NEGATIVE (<2.0 mg/dL); URINE COLOR YELLOW; URINE GLUCOSE (UA) NEGATIVE (NEGATIVE); URINE KETONE NEGATIVE (NEGATIVE); URINE LEUK ESTERASE 2+ (NEGATIVE); URINE NITRITE NEGATIVE (NEGATIVE); URINE PROTEIN 2+ (NEGATIVE); URINE UROBILINOGEN NEGATIVE mg/dL (0.2-1.0)
[2017-12-24] MEDS ORDERED: DEXAMETHASONE SOD PHOSPHATE 10 MG/1 ML VIAL ONE (17:43)
[2017-12-24 17:44] LABS: EPI CELLS RARE /HPF (FEW); URINE MUCUS RARE
[2017-12-24] MEDS: ALBUTEROL SO4 2.5/IPRATROPIUM 0.5 INH SOL 3 ML VIAL.NEB. NEB SCH ×4 (18:09→19:24)
--- NOTE | 2017-12-24 18:54 | PDOC ---
History of Present Illness - General Chief Complaint: Asthma Stated Complaint: ASTHMA, COLD SYMPTONS,CHEST PAIN Time Seen by Provider: 12/24/17 16:53 - History of Present Illness Initial Comments: 12/24/17 18:53 32-year-old female with hypertension hypothyroidism presents for 2 weeks worth of exacerbation of asthma Past History - Past Medical History Allergies/Adverse Reactions: Allergies Allergy/AdvReac Type Severity Reaction Status Date / Time Penicillins Allergy Severe Difficulty Verified 12/15/17 09:05 Breathing pollen extracts Allergy Mild Itching Verified 12/15/17 09:05 dust Allergy Mild Itching Uncoded 12/15/17 09:05 Home Medications: Ambulatory Orders Levothyroxine [Synthroid -] 137 mcg PO DAILY 12/11/14 Vit/Iron Fum/Folic AC [ Tablet] 1 each PO DAILY 01/29/16 Salmeterol/Fluticasone [Advair 100Mcg/50Mcg -] 1 inh IH BID 01/29/16 Ferrous Sulfate 325 mg PO BID 03/19/16 Albuterol Sulfate Inhaler - [Ventolin Hfa Inhaler -] 1 - 2 inh PO QID 12/15/17 Aspirin [ASA -] 81 mg PO DAILY 12/15/17 Cetirizine HCl [Zyrtec -] 10 mg PO DAILY 12/15/17 Asthma: Yes (ventolin) Cancer: No Cardiac Disorders: No COPD: No Diabetes: No HTN: Yes Seizures: No Thyroid Disease: Yes (hypothyroidism - on meds) - Surgical History Cholecystectomy: No Neurologic Surgery: No - Immunization History Immunization Up to Date: Yes - Suicide/Smoking/Psychosocial Hx Smoking History: Former smoker Have you smoked in the past 12 months: No Number of Cigarettes Smoked Daily: 5 Information on smoking cessation initiated: No Hx Alcohol Use: No Drug/Substance Use Hx: No Substance Use Type: None Hx Substance Use Treatment: No Review of Systems - Review of Systems Respiratory: Yes: Cough, Wheezing *Physical Exam - Vital Signs Last Vital Signs Temp Pulse Resp BP Pulse Ox 98.4 F 56 L 16 176/76 H 98 12/24/17 16:54 12/24/17 16:54 12/24/17 16:54 12/24/17 16:54 12/24/17 16:54 - Physical Exam Comments: 12/24/17 18:54 HEAD: NC/AT EYES: Conjuntiva clear Ears: Canals and TM's normal NOSE: No d/c THROAT: Moist mucous membrances, oral pharanx clear, uvula midline NECK: Supple without adenopathy CARDIAC: S1 S2 LUNGS: Diffuse wheezing ABDOMEN: Soft NT ND MS: Full ROM in all joints without edema NEUROLOGIC: No gross sensory or motor deficits, NVID SKIN: Normal color and temperature no lesions or rashes ED Treatment Course - ADDITIONAL ORDERS Additional order review: Laboratory Results 12/24/17 12/24/17 17:15 17:15 Urine Color Yellow Urine Appearance Slcloudy Urine pH 5.0 Ur Specific [place] 1.019 Urine Protein 2+ H Urine Glucose (UA) Negative Urine Ketones Negative Urine Blood 2+ H Urine Nitrite Negative Urine Bilirubin Negative Urine Urobilinogen Negative Ur Leukocyte Esterase 2+ H Urine WBC (Auto) 36 Urine RBC (Auto) 10 Ur Epithelial Cells Rare Urine Mucus Rare Urine HCG, Qual Negative - Medications Given in the ED: ED Medications Discontinued Medications Generic Name Dose Route Start Last Admin Trade Name Freq PRN Reason Stop Dose Admin Albuterol/Ipratropium 1 amp 12/24/17 16:56 12/24/17 17:25 Duoneb - NEB 12/24/17 16:57 1 amp ONCE ONE Administration Dexamethasone 10 mg 12/24/17 17:34 12/24/17 17:46 Decadron Liquid - PO 12/24/17 17:35 10 mg ONCE ONE Administration Medical Decision Making - Medical Decision Making 12/24/17 18:52 Continued wheezing after 3 duo nebs will give one more Tx and transfer to main ER should wheezing continue. 12/24/17 19:14 wheezing cleared after 4th duo neb *DC/Admit/Observation/Transfer Diagnosis at time of Disposition: Cough, Asthma exacerbation - Discharge Dispostion Disposition: HOME Condition at time of disposition: Stable Decision to Admit order: No - Referrals Referrals: Obi Gregg MD [Staff Physician] - - Patient Instructions Printed Discharge Instructions: Asthma -- Adult Additional Instructions: Return to the emergency room should symptoms worsen or go unresolved. Please continue your home medications as directed. Follow-up with pulmonology in one to 2 days for further evaluation and treatment options. - Post Discharge Activity
== END 2017-12-24 19:25 | disposition home or self-care (01) ==
LOC: JERFT 16:45
PROC: 3E0F7GC Introduction of Other Therapeutic Substance into Respiratory Tract, Via Natural or Artificial Opening (ICD-10-PCS; principal; 2017-12-24)
DX: J45.901 Unspecified asthma with (acute) exacerbation (principal); R05 Cough
CPT/HCPCS: 81003; 81015; 84703; 99281-25

== ENCOUNTER 2017-12-30 09:57 | Inpatient (IN) | payer OTHER ==
--- NOTE | 2017-12-30 10:26 | PDOC ---
History of Present Illness - General Chief Complaint: Blood Pressure Problem Stated Complaint: BLOOD PRESSURE PROBLEM Time Seen by Provider: 12/30/17 10:25 History Source: Patient Exam Limitations: No Limitations - History of Present Illness Initial Comments: Pt is a 32 yo F, presenting with HTN emergency/pre-eclampsia. Pt is , and delivered 12/15/2017, normal vaginal delivery (no epidural), @38 weeks. Pt states she has had HTN during her prior and this , with max systolic in 170s. She states her BP is WNL between pregnancies (~120s/80s). She went to her PCP yesterday (Dr. Weathers) for SOB, associated with chest congestion and cough. Her BP was 180s/90s, she was given .1 mg clonidine, and her BP increased to 220s. Pt was supposed to come straight over to the ER, but pt went home instead. She has also started smoking cigarettes again due to stress. Pt denies any prior estrogen use, recent surgery, and recent travel. She denies any LE pain and she says her b/l LE swelling is similar to what she experienced during . Pt denies any vision changes, chest pain, SOB, nausea/vomiting , abdominal pain, or diarrhea/constipation. Pt has history of asthma and hypothyroidism, and [facility]ation, which showed systolic BP in 170s at that time. Pt denies alcohol and other drug use. She has been smoking cigarettes again after . Pt denies recent travel and other sick contacts. 12/30/17 11:46 12/30/17 13:05 Past History - Travel Traveled outside of the country in the last 30 days: No Close contact w/someone who was outside of country & ill: No - Past Medical History Allergies/Adverse Reactions: Allergies Allergy/AdvReac Type Severity Reaction Status Date / Time Penicillins Allergy Severe Difficulty Verified 12/30/17 10:14 Breathing pollen extracts Allergy Mild Itching Verified 12/30/17 10:14 dust Allergy Mild Itching Uncoded 12/30/17 10:14 Home Medications: Ambulatory Orders Levothyroxine [Synthroid -] 137 mcg PO DAILY 12/11/14 Vit/Iron Fum/Folic AC [ Tablet] 1 each PO DAILY 01/29/16 Salmeterol/Fluticasone [Advair 100Mcg/50Mcg -] 1 inh IH BID 01/29/16 Ferrous Sulfate 325 mg PO BID 03/19/16 Albuterol Sulfate Inhaler - [Ventolin Hfa Inhaler -] 1 - 2 inh PO QID 12/15/17 Aspirin [ASA -] 81 mg PO DAILY 12/15/17 Cetirizine HCl [Zyrtec -] 10 mg PO DAILY 12/15/17 Labetalol HCl [Normodyne -] 200 mg PO BID 12/30/17 Asthma: Yes (ventolin) Cancer: No Cardiac Disorders: No COPD: No CHF: No Diabetes: No HTN: Yes (gestational HTN) Seizures: No Thyroid Disease: Yes (hypothyroidism - on meds) - Surgical History Cholecystectomy: No Neurologic Surgery: No - Immunization History Immunization Up to Date: Yes - Suicide/Smoking/Psychosocial Hx Smoking History: Former smoker Have you smoked in the past 12 months: No Number of Cigarettes Smoked Daily: 5 Information on smoking cessation initiated: No Hx Alcohol Use: No Drug/Substance Use Hx: No Substance Use Type: None Hx Substance Use Treatment: No Review of Systems - Review of Systems Able to Perform ROS?: Yes Is the patient limited [place] proficient: No Constitutional: Yes: Weight Stable. No: Chills, Diaphoresis, Fever, Loss of Appetite, Malaise, Weakness HEENTM: Yes: Other (tension-like headache, frontal and extending towards temples ). No: Blurred Vision, Recent change in vision, Double Vision, Nose Congestion , Tinnitus, Nose Bleeding, Throat Pain, Throat Swelling, Difficulty Swallowing Respiratory: Yes: Cough (dry cough), Shortness of Breath (SOB associated with cough). No: Orthopnea, Wheezing, Productive cough Cardiac (ROS): No: Chest Pain, Edema, Irregular Heart Rate, Lightheadedness, Palpitations, Syncope, Chest Tightness ABD/GI: Yes: Abdominal Distended (recent ). No: Blood Streaked Bowels, Constipated, Diarrhea, Nausea, Poor Appetite, Poor Fluid Intake, Rectal Bleeding , Vomiting, Abdominal cramping : No: Burning, Dysuria, Discharge, Frequency, Flank Pain, Hematuria, Incontinence, Pain, Urgency Musculoskeletal: No: Back Pain, Joint Pain Integumentary: No: Change in Color, Erythema, Rash Neurological: Yes: Headache (tension-like frontal headache, radiating to temples ). No: Numbness, Paresthesia, Pre-Existing Deficit, Seizure, Tingling, Tremors , Weakness, Unsteady Gait, Ataxia, Dizziness Psychiatric: No: Sleep Pattern Change, Change in Appetite Endocrine: No: Increased Urine, Change in Weight Hematologic/Lymphatic: No: Anemia, Blood Clots, Easy Bleeding, Easy Bruising All Other Systems: Reviewed and Negative *Physical Exam - Vital Signs Last Vital Signs Temp Pulse Resp BP Pulse Ox 98.7 F 95 H 18 214/109 H 100 12/30/17 10:14 12/30/17 10:14 12/30/17 10:14 12/30/17 10:14 12/30/17 10:14 - Physical Exam General Appearance: Yes: Nourished, Appropriately Dressed, Obese. No: Apparent Distress (pt lying comfortably, able to answer all questions appropriately. HTN , but pt stable.) HEENT: positive: EOMI, [place], Normal ENT Inspection, Normal Voice, Symmetrical, Pharynx Normal, Hearing Grossly Normal. negative: Scleral Icterus (R), Scleral Icterus (L), Pharyngeal Erythema, Tonsillar Exudate, Tonsillar Erythema, Nasal Congestion Neck: positive: Trachea midline, Normal Thyroid, Supple. negative: Tender, Rigid, Carotid bruit, Lymphadenopathy (R), Lymphadenopathy (L) Respiratory/Chest: positive: Lungs Clear, Normal Breath Sounds. negative: Chest Tender, Respiratory Distress, Accessory Muscle Use, Crackles, Wheezing, Plerual Rub Cardiovascular: positive: Regular Rhythm, Regular Rate, S1, S2, Edema (mild b/l pitting pedal edema, pt states chronic). negative: JVD, Murmur, Tachycardia Vascular Pulses: Carotid (R): 4+, Carotid (L): 4+ Gastrointestinal/Abdominal: positive: Normal Bowel Sounds, Soft, Protuberent. negative: Tender, Flat, Organomegaly, Pulsatile Mass, Distended, Guarding, Rebound Rectal Exam: positive: deferred Lymphatic: negative: Adenopathy, Tenderness Musculoskeletal: positive: Normal Inspection. negative: CVA Tenderness Extremity: positive: Normal Capillary Refill, Normal Inspection, Normal Range of Motion, Pelvis Stable, Pedal Edema (mild b/l pitting pedal edema, pt states chronic). negative: Tender, Calf Tenderness, Erythema Integumentary: positive: Normal Color, Dry, Warm. negative: Jaundice, Clammy, Diaphoresis, Rash Neurologic: positive: entertainment musician II-XII NML intact, Fully Oriented, Alert, Normal Mood/ Affect, Normal Response, Motor Strength 5/5. negative: EOM Palsy, Facial Droop , Numbness Deep Tendon Reflexes: Knee (L): 3+, Knee (R): 3+ Heart Score/ECG Review - History History: Slightly suspicious - Electrocardiogram EKG: Normal - Age Age: </= 45 - Risk Factors Risk Factors Heart Score: Yes Hx Hypertension, Yes Smoking History Based on the list above the patient has:: 1-2 risk factors - Troponin Troponin: </= normal limit - Score Heart Score - Total: 1 - [place]: Normal - P and ND Delta Wave(s) Present: No WPW: No - QRS Increased Voltage: Precordial Leads (V3-V6, possible LVH) Poor R Wave Progression: No Q Wave Present: No ED Treatment Course - LABORATORY CBC & Chemistry Diagram: 12/30/17 10:40 12/30/17 10:40 Medical Decision Making - Medical Decision Making Pt was seen at bedside, also will be seen by attending Dr. Wheat. Pt presenting with HTN emergency/pre-eclampsia. Pt is , and delivered 12/15/2017, normal vaginal delivery (no epidural), @38 weeks. Pt states she has had HTN during her prior and this , with max systolic in 170s. She went to her PCP yesterday (Dr. Weathers) for SOB, associated with chest congestion and cough. Her BP was 180s/90s, she was given .1 mg clonidine, and her BP increased to 220s. Pt was supposed to come straight over to the ER, but pt went home instead. She has also started smoking cigarettes again due to stress. Pt denies any prior estrogen use, recent surgery, and recent travel. She denies any LE pain and she says her b/l LE swelling is similar to what she experienced during . Pt denies any vision changes, chest pain, SOB, nausea/vomiting , abdominal pain, or diarrhea/constipation. Pt has history of asthma and hypothyroidism, and was [facility] for asthma exacerbation, which showed systolic BP in 170s at that time. On presentation: BP 214/109, HR 95, O2 100& on RA. PE showed mild b/l pitting pedal edema, clear lung sounds, no chest wall tenderness. Considering gestational HTN vs hypertensive emergency vs pre-eclampsia. Low suspicion of PE, as pt saturation 100% and symptoms sound associated with potential URI vs acute HF. Ordered work-up including CBC, CMP, Mg, Phos, coags, type & screen, ECG, troponin, serum b-hcg and chest x-ray. Will continue to reassess pt and monitor for symptomatic improvement. 12/30/17 10:50 Financial Cost Analyst will page pts OB (Dr. Lyndsay Abrams) to ask if they have any further recommendations or requests for tests/interventions. 12/30/17 10:53 Ordered 10 mg IV Labetalol and 4 g Mg for eclampsia and to reduce BP. Awaiting call from Dr. Abrams. CBC: WBC 11.6 UA 1+ protein, 1+ LE, WBC 10 Pending CMP, trop, and coags. ECG showed NSR, increased voltage QRS in V3-V6 (possible LVH), normal intervals. 12/30/17 11:[address] Bolivar (OB), who stated to hold the 4 g Mg until pt is evaluated by OB team. He agreed with 10 mg IV Labetalol, and suggested adding 30 mg PO Procardia XL and 650 mg Tylenol PO for pain. Orders were placed with nursing staff understanding of changes. We will continue to monitor BP and reassess as necessary. Dr. Wheat spoke with Dr. Abrams (OB), who agrees with Dr. Bolivar's plan and stated that proteinuria has occurred with pts pregnancies in the past (baseline 2+/3+ proteinuria). Awaiting the rest of lab results before paging hospitalist team for admission ( hospitalist admits for Dr. Weathers). 12/30/17 11:41 Repeat BP 198/93 (improving). Awaiting troponin and BNP. 12/30/17 12:26 BNP 5287, Trop .02, Beta hcg 4.5 Possible new HF, considering BNP and pt complaints of SOB. Pt receiving chest x- ray now. Paging hospitalist team for admission. 12/30/17 12:57 Repeat BP 190/90 (trending down slowly). Pt states headache improving. Pt getting Echo now. Ordered urine creatinine. 12/30/17 13:[address] Razmzan to update, who agreed with plan for Echo. 12/30/17 13:19 Spoke with admitting team (Malcolm) who will come down to see the pt; pt will be admitted to Dr. Simeon. 12/30/17 13:32 [id number] RAD/CHEST X-RAY PORTABLE* Shortness of breath. Angle AP view of the chest Unremarkable contour of the cardiomediastinal silhouette. The left costophrenic angle is obscured by the soft tissues of the chest. No evidence of blunting of the right costophrenic angle. No evidence of pneumonia. No pneumothorax seen. The pulmonary vasculature is normal. Impression. Soft tissue of the chest projecting over the left lung base, unable to evaluate for left pleural effusion. Follow-up x-ray with improved inspiration, positioning recommended. 12/30/17 13:34 BP stable with systolic 190s, pt states headache has improved. Admitting team at bedside. Awaiting bed upstairs. 12/30/17 14:53 Urine protein 48, Urine creatinine 102. 12/30/17 15:00 *DC/Admit/Observation/Transfer Diagnosis at time of Disposition: hypertension, Hypertensive emergency, Status post normal vaginal delivery - Discharge Dispostion Condition at time of disposition: Stable Decision to Admit order: Yes - Referrals - Patient Instructions - Post Discharge Activity
--- NOTE | 2017-12-30 10:54 | PDOC ---
Attending Attestation - Resident Resident Name: ZaneSharon - ED Attending Attestation I have performed the following: I have examined & evaluated the patient, The case was reviewed & discussed with the resident, I agree w/resident's findings & plan, Exceptions are as noted - HPI HPI: 12/30/17 10:54 32y F , sp vaginal delivery 2 weeks ago, hx of preeclampsia with prior presens with complaint of hypertension. pt states she has been having slightly elevated BP, was started on labetalol last week, went to see her doctor yesterday and given clonidine due to her BP -wwas referred to the ED but pt came today instead. The pt endorses mild pressure like hadache that is relatively severe since , without associated vision changes, n/v, numbness/tingling/weakness. Pt endorses mild sob/cough since the day after her delivery - and feels 'chest congstion', no signs of hemoptysis or greenish sputum, nasal congestion, pt also notes some sob with ambulation. Pt denie any significant LE edema, states she had some during her , but no significant change. pt denies cp, abd pain, vag bleeding/discyarge, diarrhea, dysuria. GENERAL: The patient is awake, alert, and fully oriented, Nontoxic - in no acute distress. HEAD: Normocephalic, atraumatic. EYES: extraocular movements intact, sclera anicteric, conjunctiva clear. ENT: Normal voice, Moist mucous membranes. NECK: Normal range of motion, supple LUNGS: Breath sounds equal, clear to auscultation bilaterally. No wheezes, no rhonchi, no rales. HEART: Regular rate and rhythm, normal S1 and S2 without murmur, rub or gallop. ABDOMEN: Soft, nontender, No guarding, no rebound. No CVA tenderness EXTREMITIES: Normal range of motion, +1 pitting edema b/l in ankles, neg calf tenderness and neg homans NEUROLOGICAL: No facial assymetry, Normal speech, moving all 4 extreities sptonaneously and symmetrically PSYCH: Normal mood, normal affect. SKIN: Warm, Dry, normal turgor, - Physicial Exam PE: 12/30/17 11:45 see above - Critical Care Time Total Critical Care Time: 45 Critical Care Statement: The care of this patient involved high complexity decision making to prevent further life threatening deterioration of the patient 's condition and/or to evaluate & treat vital organ system(s) failure or risk of failure. - Medical Decision Making 12/30/17 11:45 32y F 2 weeks s/p deliver presents with hypertnesion, headache. Neurologically intact and the patient no acute distress. Concern for hypertensive emergency versus preeclampsia Blood work obtained The patient given IV labetalol for blood pressure control Considered starting of magnesium - however after discussion with OB (dr. Aragon ) - recommended starting Procardia and the labetalol but requests we hold the magnesium and until he evaluates her. 12/30/17 11:48 case also discussed with Dr. Abrams - notes pt has a long standing hitsory of proteinuria (atleast since mid , usuall 2-3+) - is not sure that the patient's current proteinuria represents preeclampsia or is for chronic proteinuria 12/30/17 13:00 bnp at 5000 consider for possible cardiomyopathy will obtain echo will admit for further management Heart Score/ECG Review - ECG Impressions Comment:: 12/30/17 13:21 Twelve-lead EKG was performed and reviewed by me. There is normal sinus rhythm with a normal rate. Rate of 82 Left ventricular hypertrophy No signs of ST elevations or ST depression suggestive of acute ischemia
[2017-12-30 11:03] LABS: BASO % 1.3 % (0-2.0); EOS % 3.7 % (0-4.5); HEMATOCRIT 35.1 % (32.4-45.2); HEMOGLOBIN 11.7 GM/dL (10.7-15.3); LYMPH % 20.4 % (8-40); MCH 28.9 pg (25.7-33.7); MCHC 33.3 g/dl (32.0-36.0); MEAN CELL VOLUME 86.9 fl (80-96); MEAN PLT VOLUME 7.9 fl (7.5-11.1); MONO % 4.6 % (3.8-10.2); PLATELET COUNT 365 K/MM3 (134-434); RBC 4.04 M/mm3 (3.60-5.2); RDW 13.8 % (11.6-15.6); WHITE BLOOD COUNT 11.6 K/mm3 (4.0-10.0)
[2017-12-30 11:08] LABS: URINE APPEARANCE SLCLOUDY; URINE BILIRUBIN NEGATIVE (<2.0 mg/dL); URINE COLOR LTYELLOW; URINE GLUCOSE (UA) NEGATIVE (NEGATIVE); URINE KETONE NEGATIVE (NEGATIVE); URINE LEUK ESTERASE 1+ (NEGATIVE); URINE NITRITE NEGATIVE (NEGATIVE); URINE PROTEIN 1+ (NEGATIVE); URINE UROBILINOGEN NEGATIVE mg/dL (0.2-1.0)
[2017-12-30] MEDS ORDERED: MAGNESIUM SULF 50% (8.12 MEQ/2 ML-1 GM VIAL) IVPB ONE (11:09)
[2017-12-30 11:12] LABS: EPI CELLS FEW /HPF (FEW); URINE HYALINE CAST 4 /lpf; URINE MUCUS RARE
[2017-12-30] MEDS ORDERED: LABETALOL HCL 5 MG/1 ML (100MG/20 ML VIAL) IVPUSH ONE (11:12)
[2017-12-30] MEDS ORDERED: LABETALOL HCL 5 MG/1 ML (200MG/40ML VIAL) IVPB ONE (11:19)
[2017-12-30 11:22] LABS: INR 0.93 (0.83-1.09)
[2017-12-30] MEDS ORDERED: ACETAMINOPHEN 325 MG TABLET (FP) PO ONE ×2 (11:31→11:34)
[2017-12-30] MEDS ORDERED: ACETAMINOPHEN 325 MG TABLET (FP) ONE (11:42)
[2017-12-30] MEDS: NIFEdipine E.R. 30 MG TABLET (FP) PO SCH (11:43)
[2017-12-30] MEDS ORDERED: NIFEdipine E.R. 30 MG TABLET (FP) ONE (11:43)
[2017-12-30 12:00] LABS: ALBUMIN 3.1 g/dl (3.4-5.0); ALK PHOS 91 U/L (45-117); ANION GAP 6 MMOL/L (8-16); BILIRUBIN,TOTAL 0.7 mg/dL (0.2-1); BLOOD UREA NITROGEN 22 mg/dL (7-18); CALCIUM 8.9 mg/dL (8.5-10.1); CHLORIDE 105 mmol/L (98-107); CO2 27 mmol/L (21-32); CREATININE 1.2 mg/dL (0.55-1.3); GLUCOSE,RANDOM 88 mg/dL (74-106); MAGNESIUM 2.3 mg/dL (1.8-2.4); PHOSPHOROUS 4.8 mg/dL (2.5-4.9); POTASSIUM 5.4 mmol/L (3.5-5.1); SGOT/AST 32 U/L (15-37); SGPT/ALT 25 U/L (13-61); SODIUM 138 mmol/L (136-145); TOT PROT 6.9 g/dl (6.4-8.2)
[2017-12-30 12:32] LABS: N-TERMINAL BNP 5287.1 pg/ml (5-125)
--- NOTE | 2017-12-30 14:52 | ECHO ---
Name: LUH GUTIÉRREZ Exam:Adult Echocardiogram Study Date: 12/30/2017 01:52 PM Age: 32 yrs Reason For Study: EVALUATE POST CARDIOMEGALY Height: 61 in Weight: 231 lb BSA: 2.0 m2 MMode/2D Measurements & Calculations IVSd: 0.93 cm Ao root diam: 2.3 cm LVIDd: 4.7 cm LA dimension: 3.6 cm LVIDs: 3.1 cm LVPWd: 0.91 cm EDV(Teich): 101.5 ml ESV(Teich): 36.5 ml Doppler Measurements & Calculations MV E max michael: 118.5 cm/sec Ao V2 max: 155.6 cm/sec MV A max michael: 108.6 cm/sec Ao max P.7 mmHg MV E/A: 1.1 MV dec time: 0.22 sec LV V1 max P.3 mmHg MR max michael: 318.3 cm/sec LV V1 max: 76.4 cm/sec MR max P.9 mmHg TR max michael: 251.4 cm/sec Med Peak E' Michael: 5.9 cm/sec TR max P.5 mmHg Med E/e': 19.9 Lat Peak E' Michael: 6.5 cm/sec Lat E/e': 18.1 Procedure The study was technically difficult with many images being suboptimal in quality. Left Ventricle The left ventricular size, thickness and function are normal. LVEF = 65%. Right Ventricle The right ventricle is normal in size and function. Atria Normal left and right atrial size and function. Mitral Valve There is mild mitral valve thickening. There is moderate mitral regurgitation. The mitral regurgitant jet is eccentrically directed. Tricuspid Valve The tricuspid valve is not well visualized, but is grossly normal. There is trace tricuspid regurgita tion. Right ventricular systolic pressure is normal. Aortic Valve The aortic valve is normal in structure and function. Interpretation Summary The study was technically difficult with many images being suboptimal in quality. The left ventricular size, thickness and function are normal. LVEF = 65%. The right ventricle is normal in size and function. Normal left and right atrial size and function. The aortic valve is normal in structure and function. There is mild mitral valve thickening. There is moderate mitral regurgitation. The mitral regurgitant jet is eccentrically directed. MD Marilynn Dhaliwal 12/30/2017 02:52 PM
[2017-12-30] MEDS ORDERED: FUROSEMIDE 40 MG/4 ML INJECTABLE VIAL IVPUSH ONE (15:11)
--- NOTE | 2017-12-30 15:24 | HP ---
CHIEF COMPLAINT: Hypertension PCP: Dr. Sarahy CERDAN: Dr. Abrams HISTORY OF PRESENT ILLNESS: 32 year old female with a PMH significant for 2 weeks s/p delivery, preeclampsia, asthma, hypothyroidism, anemia presented to the ED with elevated BP. Patient went to her PCP yesterday with SOB and cough which she attributed to her asthma. At the appointment, she was noted to have BP in her 180s/90s at her PCPs office yesterday. She was given a dose of Clonidine 0.1 mg and her SBP sara to 220. PCP requested she go to the ED, she was unable to go yesterday and presented this morning. She has had a terrible headache for the past 5 days, pain is located towards the back of her head and radiating down her neck on both sides. She has been taking Ibuprofen at home for her pain. Patient delivered her son 15 days ago at [facility] without complications. She is not breast feeding. She only gained 13 lbs during her and has since lost 11 lbs. Denies dizziness, syncope, visual disturbance, chest pain, palpitations , n/v/d. Upon admission to the ED, her BP was 214/109. She was given a dose of Labetalol 10 mg IVP and Procardia 30 mg PO. Her BP decreased to 198/94, but then started to rise again to 191/110. Labs notable for slightly elevated WBC of 11.6, BNP 5287. Echo was unremarkable, LVEF = 65%. Recent Travel: No PAST MEDICAL HISTORY: Asthma Hypothyroidism Iron deficiency anemia Pre-eclampsia PAST SURGICAL HISTORY: Pilonidal cyst surgery LEE Social History: Smoking: Current everyday smoker, about 5 cigarettes per day for 19 years. Alcohol: None Drugs: Denies Family History: Mother: Pulmonary Embolism, age 53 Allergies Penicillins Allergy (Severe, Verified 12/30/17 10:14) Difficulty Breathing pollen extracts Allergy (Mild, Verified 12/30/17 10:14) Itching dust Allergy (Mild, Uncoded 12/30/17 10:14) Itching HOME MEDICATIONS: Home Medications Medication Instructions Recorded Levothyroxine [Synthroid -] 137 mcg PO DAILY 12/11/14 Vit/Iron Fum/Folic AC 1 each PO DAILY 01/29/16 [ Tablet] Salmeterol/Fluticasone [Advair 1 inh IH BID 01/29/16 100Mcg/50Mcg -] Ferrous Sulfate 325 mg PO BID 03/19/16 Albuterol Sulfate Inhaler - 1 - 2 inh PO QID 12/15/17 [Ventolin Hfa Inhaler -] Aspirin [ASA -] 81 mg PO DAILY 12/15/17 Cetirizine HCl [Zyrtec -] 10 mg PO DAILY 12/15/17 Labetalol HCl [Normodyne -] 200 mg PO BID 12/30/17 REVIEW OF SYSTEMS CONSTITUTIONAL: Absent: fever, chills, diaphoresis, generalized weakness, malaise, loss of appetite, weight change HEENT: Absent: rhinorrhea, nasal congestion, throat pain, throat swelling, difficulty swallowing, mouth swelling, ear pain, eye pain, visual changes CARDIOVASCULAR: (+) peripheral edema Absent: chest pain, syncope, palpitations, irregular heart rate, lightheadedness RESPIRATORY: (+) cough, shortness of breath Absent: dyspnea with exertion, orthopnea, wheezing, stridor, hemoptysis GASTROINTESTINAL: (+) constipation Absent: abdominal pain, abdominal distension, nausea, vomiting, diarrhea, melena , hematochezia GENITOURINARY: Absent: dysuria, frequency, urgency, hesitancy, hematuria, flank pain, genital pain MUSCULOSKELETAL: Absent: myalgia, arthralgia, joint swelling, back pain, neck pain SKIN: Absent: rash, itching, pallor HEMATOLOGIC/IMMUNOLOGIC: Absent: easy bleeding, easy bruising, lymphadenopathy, frequent infections ENDOCRINE: Absent: unexplained weight gain, unexplained weight loss, heat intolerance, cold intolerance NEUROLOGIC: (+) Headache Absent: focal weakness or paresthesias, dizziness, unsteady gait, seizure, mental status changes, bladder or bowel incontinence PSYCHIATRIC: Absent: anxiety, depression, suicidal or homicidal ideation, hallucinations. PHYSICAL EXAMINATION Vital Signs - 24 hr 12/30/17 12/30/17 12/30/17 10:14 11:41 12:15 Temperature 98.7 F Pulse Rate 95 H Pulse Rate [ 78 74 Left] Respiratory 18 Rate Blood Pressure 214/109 H Blood Pressure 210/99 H 198/93 H [Left Arm] O2 Sat by Pulse 100 Oximetry (%) 12/30/17 12/30/17 14:30 14:44 Temperature Pulse Rate Pulse Rate [ 89 Left] Respiratory 18 Rate Blood Pressure Blood Pressure 201/95 H 198/94 H [Left Arm] O2 Sat by Pulse 100 Oximetry (%) GENERAL: Awake, alert, and fully oriented, in no acute distress. HEAD: Normal with no signs of trauma. EYES: Pupils equal, round and reactive to light, extraocular movements intact, sclera anicteric, conjunctiva clear. No lid lag. EARS, NOSE, THROAT: Nares patent, oropharynx clear without exudates. Moist mucous membranes. NECK: Normal range of motion, supple without lymphadenopathy, JVD, or masses. LUNGS: Breath sounds equal, clear to auscultation bilaterally. No wheezes, and no crackles. No accessory muscle use. HEART: Regular rate and rhythm, normal S1 and S2 without murmur, rub or gallop. ABDOMEN: Obese, soft, nontender, not distended, normoactive bowel sounds, no guarding, no rebound, no masses. No hepatomegaly or splenomegaly. MUSCULOSKELETAL: Normal range of motion at all joints. No bony deformities or tenderness. No CVA tenderness. UPPER EXTREMITIES: 2+ pulses, warm, well-perfused. No cyanosis. No clubbing. No peripheral edema. LOWER EXTREMITIES: +2 edema b/l LE, 2+ pulses, warm, well-perfused. No calf tenderness. NEUROLOGICAL: No facial droop, tongue midline, normal speech. Gait not observed. PSYCHIATRIC: Cooperative. Good eye contact. Appropriate mood and affect. SKIN: 7 cm x 5 cm fading ecchymotic area to right forearm, warm, dry, normal turgor, no rashes, normal capillary refill. Laboratory Results - last 24 hr 12/30/17 12/30/17 12/30/17 10:40 10:40 10:40 WBC 11.6 H RBC 4.04 Hgb 11.7 Hct 35.1 D MCV 86.9 MCH 28.9 MCHC 33.3 RDW 13.8 Plt Count 365 MPV 7.9 Absolute Neuts (auto) 8.1 H Neutrophils % 70.0 Lymphocytes % 20.4 Monocytes % 4.6 Eosinophils % 3.7 D Basophils % 1.3 Nucleated RBC % 0 PT with INR INR PTT (Actin FS) 35.3 Sodium 138 Potassium 5.4 H Chloride 105 Carbon Dioxide 27 Anion Gap 6 L BUN 22 H Creatinine 1.2 Creat Clearance w eGFR 51.43 Random Glucose 88 Calcium 8.9 Phosphorus 4.8 Magnesium 2.3 Total Bilirubin 0.7 AST 32 ALT 25 Alkaline Phosphatase 91 Troponin I 0.02 B-Natriuretic Peptide 5287.1 H Total Protein 6.9 Albumin 3.1 L Beta HCG, Quant 4.5 Urine Color Urine Appearance Urine pH Ur Specific [place] Urine Protein Urine Glucose (UA) Urine Ketones Urine Blood Urine Nitrite Urine Bilirubin Urine Urobilinogen Ur Leukocyte Esterase Urine WBC (Auto) Urine RBC (Auto) Ur Epithelial Cells Hyaline Casts Urine Mucus Urine Creatinine 12/30/17 12/30/17 12/30/17 10:40 10:40 11:02 WBC RBC Hgb Hct MCV MCH MCHC RDW Plt Count MPV Absolute Neuts (auto) Neutrophils % Lymphocytes % Monocytes % Eosinophils % Basophils % Nucleated RBC % PT with INR 11.00 INR 0.93 PTT (Actin FS) Sodium Potassium Chloride Carbon Dioxide Anion Gap BUN Creatinine Creat Clearance w eGFR Random Glucose Calcium Phosphorus Magnesium Total Bilirubin AST ALT Alkaline Phosphatase Troponin I Cancelled B-Natriuretic Peptide Total Protein Albumin Beta HCG, Quant Urine Color Ltyellow Urine Appearance Slcloudy Urine pH 5.0 Ur Specific [place] 1.013 Urine Protein 1+ H Urine Glucose (UA) Negative Urine Ketones Negative Urine Blood 1+ H Urine Nitrite Negative Urine Bilirubin Negative Urine Urobilinogen Negative Ur Leukocyte Esterase 1+ H Urine WBC (Auto) 10 Urine RBC (Auto) 2 Ur Epithelial Cells Few Hyaline Casts 4 Urine Mucus Rare Urine Creatinine 12/30/17 12:18 WBC RBC Hgb Hct MCV MCH MCHC RDW Plt Count MPV Absolute Neuts (auto) Neutrophils % Lymphocytes % Monocytes % Eosinophils % Basophils % Nucleated RBC % PT with INR INR PTT (Actin FS) Sodium Potassium Chloride Carbon Dioxide Anion Gap BUN Creatinine Creat Clearance w eGFR Random Glucose Calcium Phosphorus Magnesium Total Bilirubin AST ALT Alkaline Phosphatase Troponin I B-Natriuretic Peptide Total Protein Albumin Beta HCG, Quant Urine Color Urine Appearance Urine pH Ur Specific [place] Urine Protein 48 H Urine Glucose (UA) Urine Ketones Urine Blood Urine Nitrite Urine Bilirubin Urine Urobilinogen Ur Leukocyte Esterase Urine WBC (Auto) Urine RBC (Auto) Ur Epithelial Cells Hyaline Casts Urine Mucus Urine Creatinine 102.0 H ECHO LVEF: 65% Mild mitral valve thickening Moderate mitral regurgitation ASSESSMENT/PLAN 32 year old female with a PMH significant for 2 weeks s/p delivery, preeclampsia, asthma, hypothyroidism, anemia presented to the ED with elevated BP. She was admitted for HTN management an cardiac monitoring. Hypertension -Given Lasix 40 mg IVP now -Cr 1.2 increased from 0.7 two weeks ago, monitor BMP -Continue Labetalol 200 mg BID -Continue Procardia 30 mg qday -Monitor BP -Sodium restricted diet -OBGYN consult ordered Headache -Likely secondary to HTN -Given Motrin 600 mg x 1 -Will try Fioricet if not effective Asthma -Currently stable -Continue Advair BID -Nebs PRN Morbid Obesity -BMI 42.9 Hypothyroidism -Continue Synthroid Iron deficiency anemia -H&H currently stable -Continue Iron supplement BID FEN -PO intake adequate -Replete electrolytes as indicated -Low sodium diet DVT Prophylaxis -Heparin Sq Dispo: pt currently requires further inpatient care. FULL CODE Visit type - Emergency Visit Emergency Visit: Yes ED Registration Date: 12/30/17 Care time: The patient presented to the Emergency Department on the above date and was hospitalized for further evaluation of their emergent condition. - New Patient This patient is new to me today: Yes Date on this admission: 12/30/17 - Critical Care Critical Care patient: No
[2017-12-30] MEDS ORDERED: LABETALOL HCL 200 MG TABLET (FP) PO ONE (15:41)
[2017-12-30 15:50] VITALS: BMI 42.9
[2017-12-30] MEDS ORDERED: ACETAMINOPHEN 325 MG TABLET (FP) PO PRN (15:54)
--- NOTE | 2017-12-30 16:13 | EKG ---
Test Reason : Blood Pressure : / mmHG Vent. Rate : 082 BPM Atrial Rate : 082 BPM P-R Int : 130 ms QRS Dur : 074 ms QT Int : 408 ms P-R-T Axes : 036 005 048 degrees QTc Int : 476 ms NORMAL SINUS RHYTHM POSSIBLE LEFT ATRIAL ENLARGEMENT LEFT VENTRICULAR HYPERTROPHY ABNORMAL ECG NO PREVIOUS ECGS AVAILABLE Confirmed by MD MIRTHA, FLORENCE ([id number]) on 12/30/2017 4:13:03 PM Referred By: Confirmed By:FLORENCE SHANNON MD
[2017-12-30] MEDS ORDERED: FLU VACCINE QUAD 60 MCG/0.5 ML (MDV 18-19) IM ONE (17:00)
[2017-12-30] MEDS: FERROUS SO4 325 MG TABLET (FP) PO SCH (17:57)
[2017-12-30] MEDS ORDERED: IBUPROFEN 600 MG TABLET (FP) PO ONE (18:13)
[2017-12-30] MEDS: HEPARIN NA (PORCINE) 5,000 UNITS/ML 1ML VIAL SQ SCH (21:49)
[2017-12-30] MEDS: LABETALOL HCL 200 MG TABLET (FP) PO SCH (21:49)
[2017-12-30] MEDS: DOCUSATE SODIUM 100 MG CAPSULE (FP) PO SCH (21:50)
[2017-12-30] MEDS: FLUTICASONE/SALMETEROL 100 MCG/50 MCG DISKUS IH SCH (22:27)
[2017-12-31] MEDS ORDERED: KETOROLAC TROMETHAMINE 30 MG/1 ML VIAL IM ONE (04:00)
[2017-12-31] MEDS ORDERED: LEVOTHYROXINE NA 25 MCG TABLET (FP) ONE ×2 (06:25→08:37)
[2017-12-31] MEDS ORDERED: LEVOTHYROXINE NA 112 MCG TABLET (FP) ONE ×2 (06:26→08:37)
[2017-12-31] MEDS: DOCUSATE SODIUM 100 MG CAPSULE (FP) PO SCH ×2 (06:32→13:26)
[2017-12-31] MEDS: HEPARIN NA (PORCINE) 5,000 UNITS/ML 1ML VIAL SQ SCH ×2 (06:32→13:27)
[2017-12-31] MEDS ORDERED: LEVOTHYROXINE 112 MCG, LEVOTHYROXINE 25 MCG PO SCH (07:00)
[2017-12-31] MEDS ORDERED: ACETAMINOPHEN/CAFFEINE/BUTALBITAL 1 TAB PO ONE (08:17)
[2017-12-31 08:41] LABS: HEMATOCRIT 37.2 % (32.4-45.2); HEMOGLOBIN 12.3 GM/dL (10.7-15.3); MCH 28.6 pg (25.7-33.7); MCHC 33.1 g/dl (32.0-36.0); MEAN CELL VOLUME 86.3 fl (80-96); MEAN PLT VOLUME 7.5 fl (7.5-11.1); PLATELET COUNT 363 K/MM3 (134-434); RBC 4.31 M/mm3 (3.60-5.2); RDW 13.7 % (11.6-15.6); WHITE BLOOD COUNT 9.6 K/mm3 (4.0-10.0)
[2017-12-31 09:08] LABS: ANION GAP 11 MMOL/L (8-16); BLOOD UREA NITROGEN 25 mg/dL (7-18); CALCIUM 8.6 mg/dL (8.5-10.1); CHLORIDE 103 mmol/L (98-107); CO2 26 mmol/L (21-32); CREATININE 1.2 mg/dL (0.55-1.3); GLUCOSE,RANDOM 116 mg/dL (74-106); MAGNESIUM 2.2 mg/dL (1.8-2.4); POTASSIUM 3.9 mmol/L (3.5-5.1); SODIUM 139 mmol/L (136-145)
[2017-12-31] MEDS: FERROUS SO4 325 MG TABLET (FP) PO SCH (09:22)
[2017-12-31] MEDS: NIFEdipine E.R. 30 MG TABLET (FP) PO SCH (09:22)
[2017-12-31] MEDS: LABETALOL HCL 200 MG TABLET (FP) PO SCH (09:22)
[2017-12-31] MEDS: FLUTICASONE/SALMETEROL 100 MCG/50 MCG DISKUS IH SCH (09:23)
[2017-12-31] MEDS ORDERED: LORATADINE 10 MG TABLET PO SCH (10:00)
[2017-12-31] MEDS ORDERED: LEVOTHYROXINE NA 100 MCG TABLET (FP) PO SCH (10:00)
[2017-12-31] MEDS ORDERED: ASPIRIN 81 MG CHEWABLE TABLETS PO SCH (10:00)
[2017-12-31] MEDS ORDERED: PRENATAL VITAMINS W/ FOLIC ACID TABLET (FP) PO SCH (10:00)
[2017-12-31 15:16] VITALS: BP 147/83; PULSE 82; TEMP 98.2
--- NOTE | 2017-12-31 16:42 | DS ---
Physical Exam: SUBJECTIVE: Patient seen and examined in her room. OBJECTIVE: Vital Signs Period Temp Pulse Resp BP Sys/Guerra Pulse Ox Last 24 Hr 97.8 F-98.7 F 81-96 20-20 146-185/64-101 98-98 PHYSICAL EXAM GENERAL: Awake, alert, and fully oriented, in no acute distress. HEAD: Normal with no signs of trauma. EYES: Pupils equal, round and reactive to light, extraocular movements intact, sclera anicteric, conjunctiva clear. No lid lag. EARS, NOSE, THROAT: Nares patent, oropharynx clear without exudates. Moist mucous membranes. NECK: Normal range of motion, supple without lymphadenopathy, JVD, or masses. LUNGS: Breath sounds equal, clear to auscultation bilaterally. No wheezes, and no crackles. No accessory muscle use. HEART: Regular rate and rhythm, normal S1 and S2 without murmur, rub or gallop. ABDOMEN: Obese, soft, nontender, not distended, normoactive bowel sounds, no guarding, no rebound, no masses. No hepatomegaly or splenomegaly. MUSCULOSKELETAL: Normal range of motion at all joints. No bony deformities or tenderness. No CVA tenderness. UPPER EXTREMITIES: 2+ pulses, warm, well-perfused. No cyanosis. No clubbing. No peripheral edema. LOWER EXTREMITIES: 2+ pulses, warm, well-perfused. No calf tenderness, no peripheral edema NEUROLOGICAL: No facial droop, tongue midline, normal speech. Gait not observed. PSYCHIATRIC: Cooperative. Good eye contact. Appropriate mood and affect. SKIN: 7 cm x 5 cm fading ecchymotic area to right forearm, warm, dry, normal turgor, no rashes, normal capillary refill. LABS Laboratory Results - last 24 hr 12/30/17 12/31/17 12/31/17 16:00 08:25 08:25 WBC 9.6 RBC 4.31 Hgb 12.3 Hct 37.2 MCV 86.3 MCH 28.6 MCHC 33.1 RDW 13.7 Plt Count 363 MPV 7.5 Sodium 139 Potassium 3.9 Chloride 103 Carbon Dioxide 26 Anion Gap 11 BUN 25 H Creatinine 1.2 Creat Clearance w eGFR 51.43 Random Glucose 116 H Calcium 8.6 Magnesium 2.2 Troponin I Cancelled HOSPITAL COURSE: Date of Admission:12/30/17 Date of Discharge: 12/31/17 32 year old female with a PMH significant for 2 weeks s/p delivery, preeclampsia, asthma, hypothyroidism, anemia presented to the ED with elevated BP and headache. Upon admission to the ED, her BP was 214/109; she was given a dose of Labetalol 10 mg IVP and Procardia 30 mg PO. Her BP decreased to 198/94, but then started to rise again to 191/110. She was given a dose of Lasix 40 mg IV. Labs upon admission notable for slightly elevated WBC of 11.6, BNP 5287. Echo was unremarkable, LVEF = 65%. Blood pressure started to trend down, however her MENDOZA worsened in the evening. Motrin 600 mg ineffective, she was given a dose of Fiorcet this morning to good effect. Final BP 147/83. Patient to f/u with OB and PCP after discharge. Hypertension -Cr 1.2 increased from 0.7 two weeks ago, monitor BMP -Continue home Labetalol 200 mg BID -Started on Procardia 30 mg qday -Monitor BP, home BP cuff ordered. -Sodium restricted diet Hyperkalemia -K 5.4 -> 3.9 after receiving Lasix 40 mg. Leukocytosis -Resolved -11.6 -> 9.6 Asthma -Stable -Continue Advair BID -Ventolin inhaler and Nebs PRN Morbid Obesity -BMI 42.9 -Educated on low sodium diet and role of obesity and hypertension. Hypothyroidism -Continue Synthroid Iron deficiency anemia -H&H stable -Continue Iron supplement BID Minutes to complete discharge: 45 Discharge Summary Reason For Visit: HYPERTENSIVE EMERGENCY, HYPERTENSION, Current Active Problems Hypertensive emergency (Acute) hypertension (Acute) Status post normal vaginal delivery (Acute) Condition: Improved - Instructions Diet, Activity, Other Instructions: Dear Mervin, You were admitted to [facility] on 12/30/2017 for hypertension. Here are our recommendations: Hypertension: -Continue taking Labetalol 200 mg twice a day. -Start taking new medication Procardia 30 mg once a day. -A blood pressure cuff has been called into your pharmacy. Please monitor your blood pressure at least once a day and notify your primary care provider if the upper number (systolic pressure) is greater than 180, and or the bottom number (diastolic pressure) is greater than 100. Please keep a log. Asthma -Continue Ventolin inhaler PRN -Continue Advair inhaler twice a day Obesity -Hypertension can be significantly improved even with a small weight loss of 5-10 lbs. -We recommend that your have your PCP refer you to a bedspread folder for further help with weight loss. Hypothyroidism -Continue taking Synthroid every morning on an empty stomach 30 minutes before eating. Iron deficiency anemia -Your recent labwork shows your anemia is improved and now within normal limits, consult your primary care provider about possibly reducing Iron supplement. -Continue taking Iron supplement twice a day You have agreed to schedule a follow up with your OBGYN provider Dr. Abrams and your PCP Dr. Lerma Please bring your discharge papers and your insurance card. I am available for questions. [facility] [phone] Referrals: Sarahy Lerma MD [Primary Care Provider] - Disposition: HOME - Home Medications Comprehensive Discharge Medication List: Ambulatory Orders Levothyroxine [Synthroid -] 137 mcg PO DAILY 12/11/14 Vit/Iron Fum/Folic AC [ Tablet] 1 each PO DAILY 01/29/16 Salmeterol/Fluticasone [Advair 100Mcg/50Mcg -] 1 inh IH BID 01/29/16 Ferrous Sulfate 325 mg PO BID 03/19/16 Albuterol Sulfate Inhaler - [Ventolin HFA Inhaler -] 1 - 2 inh PO QID 12/15/17 Aspirin [ASA -] 81 mg PO DAILY 12/15/17 Cetirizine HCl [Zyrtec -] 10 mg PO DAILY 12/15/17 Labetalol HCl [Normodyne -] 200 mg PO BID 12/30/17 Acetaminophen [Tylenol .Regular Strength -] 650 mg PO Q6H PRN tablet 12/31/17 Blood Pressure Kit Joselito Larsen [Blood Pressure Monitor] 1 each MC DAILY #1 kit Docusate Sodium [Colace -] 100 mg PO TID capsule 12/31/17 Nifedipine ER [Procardia XL -] 30 mg PO DAILY #30 tab.er.24 12/31/17 This patient is new to me today: No Emergency Visit: No Critical Care patient: No - Discharge Referral Referred to [facility] No
== END 2017-12-31 16:47 | disposition home or self-care (01) | DRG 561 ==
LOC: JER 09:57 → JERBED 13:02 → J4W 15:14
PROVIDERS: ADMIT Internal Medicine; ATTEND Nurse Practitioner Adult Health
DX: O16.5 Unspecified maternal hypertension, complicating the puerperium (principal); I16.1 Hypertensive emergency; E87.5 Hyperkalemia; Z68.41 Body mass index [BMI] 40.0-44.9, adult; E66.01 Morbid (severe) obesity due to excess calories; E03.9 Hypothyroidism, unspecified; J45.909 Unspecified asthma, uncomplicated; D50.9 Iron deficiency anemia, unspecified; D72.829 Elevated white blood cell count, unspecified; F17.210 Nicotine dependence, cigarettes, uncomplicated; Z88.0 Allergy status to penicillin
CPT/HCPCS: 36415; 71045-TC-FY; 80048; 80053; 81003; 81015; 82570; 83735; 83880; 84100; 84156; 84484; 84702; 85025; 85027; 85610; 85730; 87086; 90688; 93005; 93010; 93306-TC; 99285-25; G0008; J1644

== ENCOUNTER 2019-01-01 17:36 | Emergency (ER) | payer OTHER ==
[2019-01-01 17:48] VITALS: TEMP 98.1; BMI 36.2
[2019-01-01] MEDS ORDERED: LABETALOL HCL 200 MG TABLET (FP) PO ONE (17:49)
[2019-01-01] MEDS ORDERED: LABETALOL HCL 100 MG TABLET (FP) ONE (17:52)
[2019-01-01] MEDS ORDERED: NIFEdipine E.R. 30 MG TABLET (FP) ONE (17:52)
[2019-01-01] MEDS ORDERED: NIFEdipine E.R. 30 MG TABLET (FP) PO ONE (17:55)
--- NOTE | 2019-01-01 17:56 | PDOC ---
Rapid Medical Evaluation Chief Complaint: Pain, Acute Time Seen by Provider: 01/01/19 17:49 Medical Evaluation: Allergies Allergy/AdvReac Type Severity Reaction Status Date / Time Penicillins Allergy Severe Difficulty Verified 01/01/19 17:43 Breathing pollen extracts Allergy Mild Itching Verified 01/01/19 17:43 dust Allergy Mild Itching Uncoded 01/01/19 17:43 Vital Signs Temp Pulse Resp BP Pulse Ox 98.1 F 94 H 18 199/112 H 97 01/01/19 17:45 01/01/19 17:45 01/01/19 17:45 01/01/19 17:45 01/01/19 17:45 01/01/19 17:50 Pt c/o: lump to throat since friday, initially noted greenish phlegm/pus now whitish, no fever, no travel, hx htn, does not take meds routinely, hx hypothyroidism (takes her synthroid) Pt on brief exam: post soft palate intact, no visable or palpable mass, BP elevated Pt ordered for: u preg, soft tissue ct, and antihypertensive meds pt to proceed to the ED Discharge Disposition - Diagnosis Lump in throat, Postnasal drip - Referrals - Patient Instructions Additional Instructions: You were seen for globus sensation (feeling that something is struck in your throat) in the setting of recent cold. Your physical exam did not show significant swelling or redness. This is likely to be postnasal drip. Please take over the counter Claritin and Sudafed as needed. Follow up with your primary care doctor. Return to the ED if you develop worsening symptoms, or if you have any trouble breathing. - Post Discharge Activity
--- NOTE | 2019-01-01 19:25 | PDOC ---
History of Present Illness <Mickey White - Last Filed: 01/01/19 21:42> - History of Present Illness Initial Comments: 01/01/19 19:17 33 yo F PMH HTN, asthma, hypothyroidism, presenting with globus sensation. States that it began on Friday, worsened through that day, with some throat closing sensation which resolved that night. Also had expectoration of white pus , also resolved. Had cold last week. Complains of ongoing globus sensation and fatigue. Never had throat pain or swelling. Reports that she has not been taking her medications due to forgetting and having stress at home (multiple children, one of who is 2 years old and the other 1 year old). Denies CP, SOB, constipation/diarrhea, fevers/chills, N/V. <Tunde Fair - Last Filed: 01/01/19 22:14> - General Chief Complaint: Pain, Acute Stated Complaint: SORE THROAT/FATIGUE Time Seen by Provider: 01/01/19 17:49 Past History <Mickey White - Last Filed: 01/01/19 21:42> - Past Medical History Asthma: Yes Cancer: No Cardiac Disorders: No COPD: No CHF: No Diabetes: No HTN: Yes Seizures: No Thyroid Disease: Yes (Hypothyroidism - on meds) Other medical history: post HTN 12/18 - Surgical History Cholecystectomy: No Neurologic Surgery: No - Immunization History Immunization Up to Date: Yes - Psycho Social/Smoking Cessation Hx Smoking History: Never smoked Have you smoked in the past 12 months: No Number of Cigarettes Smoked Daily: 5 Hx Alcohol Use: No Drug/Substance Use Hx: No Substance Use Type: None Hx Substance Use Treatment: No <Tunde Fair - Last Filed: 01/01/19 22:14> - Past Medical History Allergies/Adverse Reactions: Allergies Allergy/AdvReac Type Severity Reaction Status Date / Time Penicillins Allergy Severe Difficulty Verified 01/01/19 17:43 Breathing pollen extracts Allergy Mild Itching Verified 01/01/19 17:43 dust Allergy Mild Itching Uncoded 01/01/19 17:43 Home Medications: Ambulatory Orders Levothyroxine [Synthroid -] 137 mcg PO DAILY 12/11/14 Salmeterol/Fluticasone [Advair 100Mcg/50Mcg -] 1 inh IH BID 01/29/16 Ferrous Sulfate 325 mg PO BID 03/19/16 Albuterol Sulfate Inhaler - [Ventolin HFA Inhaler -] 1 - 2 inh PO QID 12/15/17 Aspirin [ASA -] 81 mg PO DAILY 12/15/17 Cetirizine HCl [Zyrtec -] 10 mg PO DAILY 12/15/17 Labetalol HCl [Normodyne -] 200 mg PO BID 12/30/17 Acetaminophen [Tylenol .Regular Strength -] 650 mg PO Q6H PRN tablet 12/31/17 Nifedipine ER [Procardia XL -] 30 mg PO DAILY #30 tab.er.24 12/31/17 Review of Systems - Review of Systems Able to Perform ROS?: Yes Constitutional: Yes: Other (fatigue). No: Chills, Diaphoresis, Fever HEENTM: Yes: Other (globus sensation). No: Recent change in vision, Double Vision, Ear Discharge, Nose Pain, Throat Pain Respiratory: Yes: Cough. No: Orthopnea, Shortness of Breath Cardiac (ROS): No: Chest Pain, Edema, Irregular Heart Rate ABD/GI: No: Constipated, Diarrhea, Nausea, Vomiting : No: Burning, Dysuria, Discharge, Frequency, Flank Pain Musculoskeletal: No: Back Pain, Muscle Pain Neurological: No: Headache, Numbness, Tingling, Weakness <Tunde Fair - Last Filed: 01/01/19 22:14> *Physical Exam - Vital Signs Last Vital Signs Temp Pulse Resp BP Pulse Ox 98.1 F 94 H 18 199/112 H 97 01/01/19 17:45 01/01/19 17:45 01/01/19 17:45 01/01/19 17:45 01/01/19 17:45 <Mickey White - Last Filed: 01/01/19 21:42> - Vital Signs Last Vital Signs Temp Pulse Resp BP Pulse Ox 98.1 F 94 H 18 199/112 H 97 01/01/19 17:45 01/01/19 17:45 01/01/19 17:45 01/01/19 17:45 01/01/19 17:45 - Physical Exam Comments: 01/01/19 19:27 Gen: well-developed, well-nourished, NAD Neuro: AAOX4, CN II-XII intact, FTN intact, EOMI, PERRLA, 5/5 strength, SILT HEENT: atraumatic, normocephalic Neck: trachea midline, supple Throat: mild edema in posterior oropharynx, no apparent erythema or exudates CV: regular rate, regular rhythm, no murmurs, rubs, or gallops Pulm: CTA b/l, no wheezing Abd: soft, non-distended, non-tender MSK: full ROM, intact pulses Extr: no edema, no deformities Skin: warm, dry <Tunde Fair - Last Filed: 01/01/19 22:14> ED Treatment Course - LABORATORY CBC & Chemistry Diagram: 01/01/19 19:10 01/01/19 19:10 - ADDITIONAL ORDERS Additional order review: Laboratory Results 01/01/19 01/01/19 01/01/19 19:12 19:12 19:10 Sodium 137 Potassium 4.4 Chloride 104 Carbon Dioxide 29 Anion Gap 4 L BUN 24.0 H Creatinine 1.3 Est GFR (CKD-EPI)AfAm 61.55 Est GFR (CKD-EPI)NonAf 53.11 Random Glucose 82 Calcium 9.3 Total Bilirubin 0.4 AST 20 ALT 30 Alkaline Phosphatase 94 Total Protein 7.4 Albumin 3.9 Urine Color Yellow Urine Appearance Cloudy Urine pH 6.0 Ur Specific [place] 1.037 H Urine Protein 2+ H Urine Glucose (UA) Negative Urine Ketones Trace H Urine Blood Negative Urine Nitrite Negative Urine Bilirubin Negative Urine Urobilinogen 1.0 Ur Leukocyte Esterase Negative Urine WBC (Auto) 5 Urine Casts (Auto) 10 U Epithel Cells (Auto) 29.4 Urine Bacteria (Auto) 710.2 Urine HCG, Qual Negative 01/01/19 19:10 RBC 4.48 MCV 82.2 MCHC 32.7 RDW 14.8 MPV 7.6 Neutrophils % 56.3 Lymphocytes % 32.3 D Monocytes % 7.4 Eosinophils % 2.7 Basophils % 1.3 - RADIOLOGY Radiology Studies Ordered: Category Date Time Status CHEST PA & LAT [RAD] Stat Radiology 01/01/19 19:21 Taken - Medications Given in the ED: ED Medications Discontinued Medications Generic Name Dose Route Start Last Admin Trade Name Freq PRN Reason Stop Dose Admin Labetalol HCl 200 mg 01/01/19 17:49 01/01/19 17:54 Normodyne - PO 01/01/19 17:50 200 mg ONCE ONE Administration Nifedipine 30 mg 01/01/19 17:55 01/01/19 17:55 Procardia Xl - PO 01/01/19 17:56 30 mg NOW ONE Administration <Mickey White - Last Filed: 01/01/19 21:42> - LABORATORY CBC & Chemistry Diagram: 01/01/19 19:10 01/01/19 19:10 - Medications Given in the ED: ED Medications Discontinued Medications Generic Name Dose Route Start Last Admin Trade Name Titusq PRN Reason Stop Dose Admin Labetalol HCl 200 mg 01/01/19 17:49 01/01/19 17:54 Normodyne - PO 01/01/19 17:50 200 mg ONCE ONE Administration Nifedipine 30 mg 01/01/19 17:55 01/01/19 17:55 Procardia Xl - PO 01/01/19 17:56 30 mg NOW ONE Administration <Tunde Fair - Last Filed: 01/01/19 22:14> Medical Decision Making - Medical Decision Making 01/01/19 19:27 Globus sensation without apparent exudates. Most likely postnasal drip. - rapid strep - CBC with WBC elevation - upreg negative, UA without UTI Dc home on Sudafed and Claritin. 01/01/19 20:54 Rapid strep negative. CXR no acute pathology. <Tunde Fair - Last Filed: 01/01/19 22:14> Discharge - Discharge Information Problems reviewed: Yes <Mickey White - Last Filed: 01/01/19 21:42> - Discharge Information Problems reviewed: Yes <Tnude Fair - Last Filed: 01/01/19 22:14> - Discharge Information Clinical Impression/Diagnosis: Lump in throat, Postnasal drip Condition: Stable Disposition: HOME - Patient Discharge Instructions Patient Printed Discharge Instructions: DI for Sinusitis Additional Instructions: You were seen for globus sensation (feeling that something is struck in your throat) in the setting of recent cold. Your physical exam did not show significant swelling or redness. This is likely to be postnasal drip. Please take over the counter Claritin and Sudafed as needed. Follow up with your primary care doctor. Return to the ED if you develop worsening symptoms, or if you have any trouble breathing.
[2019-01-01 19:31] LABS: BASO % 1.3 % (0-2.0); EOS % 2.7 % (0-4.5); HEMATOCRIT 36.8 % (32.4-45.2); LYMPH % 32.3 % (8-40); MCH 26.9 pg (25.7-33.7); MCHC 32.7 g/dl (32.0-36.0); MEAN CELL VOLUME 82.2 fl (80-96); MEAN PLT VOLUME 7.6 fl (7.5-11.1); MONO % 7.4 % (3.8-10.2); NEUT % 56.3 % (42.8-82.8); PLATELET COUNT 429 K/MM3 (134-434); RBC 4.48 M/mm3 (3.60-5.2); RDW 14.8 % (11.6-15.6); WHITE BLOOD COUNT 11.7 K/mm3 (4.0-10.0)
--- NOTE | 2019-01-01 19:56 | PDOC ---
Documentation entered by Domenico Blount SCRIBE, acting as scribe for Mickey White MD. Mickey White MD: This documentation has been prepared by the Jose Alejandro gresham Daniel, SCRIBE, under my direction and personally reviewed by me in its entirety. I confirm that the documentation accurately reflects all work, treatment, procedures, and medical decision making performed by me. Attending Attestation - Resident Resident Name: Tunde Fair - ED Attending Attestation I have performed the following: I have examined & evaluated the patient, The case was reviewed & discussed with the resident, I agree w/resident's findings & plan - HPI HPI: 01/01/19 19:23 The patient is a 33 year old female with a past medical history of HTN and asthma here today for evaluation of globus sensation. The patient reports that she has had a globus sensation since friday (12/29/18) but states that she is able to swallow and notes that she has had a cold for 1 week. She also notes coughing up thick green phlegm which turned white. She states that she came in today because her symptoms are ongoing. Patient denies headache, lightheadedness. Denies fever, chills. Denies chest pain, shortness of breath. Denies nausea, vomiting, diarrhea, abdominal pain. Allergies: penicllins, pollen extracts, dust - Physicial Exam PE: 01/01/19 19:51 GENERAL: The patient is awake, alert, and fully oriented, in no acute distress. HEAD: Normal with no signs of trauma. EYES: Pupils equal, round and reactive to light, extraocular movements intact, sclera anicteric, conjunctiva clear with no pallor. ENT: +mild posterior oropharynx swelling. Ears normal, nares patent. Moist mucous membranes. NECK: Normal range of motion, supple without lymphadenopathy, JVD, or masses. LUNGS: Breath sounds equal, clear to auscultation bilaterally. No wheeze/ crackles. HEART: Regular rate and rhythm, normal S1 and S2 without murmur or rub. ABDOMEN: Soft/nontender/nondistended. BS wnl. No guarding or rebound. No palpable masses. No hepatosplenomegaly. EXTREMITIES: Normal range of motion, no edema. No clubbing or cyanosis. No cords, erythema, or tenderness. NEUROLOGICAL: Cranial nerves II through XII grossly intact. Normal speech, normal gait. PSYCH: Normal mood, normal affect. SKIN: Warm, Dry, normal turgor, no rashes or lesions noted. - Medical Decision Making 01/01/19 19:52 A portion of this note was documented by scribe services under my direction. I have reviewed the details of the note, within reason, and agree with the documentation with the following case summary and management plan written by me. 33-year-old female with history of hypertension no noncompliance with her antihypertensives presents now with globus sensation in her throat. Patient with recent URI and sinusitis type symptoms, since improved but with fluid buildup in her throat initially of green sputum and now white, no odynophagia or dysphagia, no voice change or shortness of breath, no fevers or chills, no chest pain. Afebrile, blood pressure elevated in setting of medication noncompliance Exam as noted with slight swelling of the tonsils but midline uvula, no exudate. No thyroid enlargement or notable lymphadenopathy, trachea midline, no stridor, voice clear. Lungs clear, heart regular 33-year-old female with recent URI presents with likely symptoms of postnasal drip, slowly improving without evidence of airway compromise or respiratory distress. Slight enlargement of the tonsils, rule out strep pharyngitis. Lungs are clear. Elevated blood pressure without red flags of endorgan injury on history or physical exam. Labs sent Throat swab Baseline blood pressure medications given Reassess, if above is within normal limits, recommend decongestants, understands return criteria 01/01/19 21:00 cxr wnl, strep negative, feels well, ambulating and joking with staff. bp 190/91, feels well and no evidence of end organ injury. since known non- compliance and meds restarted, will d/c with return precautions, will take her meds, f/u with Dr. Lerma at [facility], her pcp.
[2019-01-01 20:01] LABS: ALBUMIN 3.9 g/dl (3.4-5.0); BILIRUBIN,TOTAL 0.4 mg/dL (0.2-1); CALCIUM 9.3 mg/dL (8.5-10.1); CREATININE 1.3 mg/dL (0.55-1.3); POTASSIUM 4.4 mmol/L (3.5-5.1); TOT PROT 7.4 g/dl (6.4-8.2)
[2019-01-01 20:17] LABS: EPI CELLS 29.4 /HPF (0-5/HPF); HYALINE CASTS 10 /lpf (0-8); URINE APPEARANCE CLOUDY; URINE BACTERIA 710.2 /hpf (NEGATIVE); URINE BILIRUBIN NEGATIVE (NEGATIVE); URINE COLOR YELLOW; URINE GLUCOSE (UA) NEGATIVE (NEGATIVE); URINE KETONE TRACE (NEGATIVE); URINE LEUK ESTERASE NEGATIVE (NEGATIVE); URINE NITRITE NEGATIVE (NEGATIVE); URINE PROTEIN 2+ (NEGATIVE); URINE WBC 5 /hpf (0-5)
[2019-01-01 21:58] VITALS: BP 174/98; PULSE 69
[2019-01-01 23:21] LABS: URINE RBC 4.7 /hpf (0-4)
[2019-01-02] MEDS ORDERED: NIFEdipine E.R. 30 MG TABLET (FP) PO ONE (17:50)
== END 2019-01-01 21:59 | disposition home or self-care (01) ==
LOC: JER 17:36
DX: R09.89 Other specified symptoms and signs involving the circulatory and respiratory systems (principal); R09.82 Postnasal drip; F45.8 Other somatoform disorders; I10 Essential (primary) hypertension; E03.9 Hypothyroidism, unspecified; J45.909 Unspecified asthma, uncomplicated; Z88.0 Allergy status to penicillin; Z91.048 Other nonmedicinal substance allergy status; Z91.14 Patient's other noncompliance with medication regimen
CPT/HCPCS: 36415; 71046-TC-FY; 80053; 81003; 84703; 85025; 87070; 87880; 99282-25

== ENCOUNTER 2019-08-30 12:51 | Emergency (ER) | payer OTHER ==
[2019-08-30 12:55] VITALS: PULSE 110; TEMP 98.3; BMI 43.4
--- NOTE | 2019-08-30 12:56 | PDOC ---
Rapid Medical Evaluation Chief Complaint: Pain Time Seen by Provider: 08/30/19 12:53 Medical Evaluation: Allergies Allergy/AdvReac Type Severity Reaction Status Date / Time Penicillins Allergy Severe Difficulty Verified 01/01/19 17:43 Breathing pollen extracts Allergy Mild Itching Verified 01/01/19 17:43 dust Allergy Mild Itching Uncoded 01/01/19 17:43 Vital Signs Temp Pulse Resp BP Pulse Ox 98.3 F 110 H 20 168/101 H 100 08/30/19 12:51 08/30/19 12:51 08/30/19 12:51 08/30/19 12:51 08/30/19 12:51 08/30/19 12:55 CC: rt ankle pain x 6-7 months worse with ambulation, denies injury Exam: from of ankle, no deformity Plan: xray Discharge Disposition - Diagnosis Ankle pain, right Qualifiers: Chronicity: acute Qualified Code(s): M25.571 - Pain in right ankle and joints of right foot - Discharge Dispostion Disposition: HOME Condition at time of disposition: Stable - Prescriptions Prescriptions: Naproxen [Naprosyn] 500 mg PO BID PRN #20 tablet PRN Reason: Pain - Referrals Referrals: Ricky Martinez DO [Staff Physician] - 1 week - Patient Instructions Printed Discharge Instructions: DI for Ankle Pain Additional Instructions: Patient has been made aware that she can take Naprosyn for her pain but should take it with food. The Naprosyn was sent to her pharmacy. She should follow-up with an orthopedist for further evaluation and treatment as she may require an MRI or further evaluation. She understands and agrees with this treatment plan and she is stable for discharge. - Post Discharge Activity Work/School Note: Back to Work
--- NOTE | 2019-08-30 13:44 | PDOC ---
History of Present Illness - General Chief Complaint: Pain Stated Complaint: RT ANKLE PAIN/INJURY Time Seen by Provider: 08/30/19 12:53 History Source: Patient Exam Limitations: No Limitations - History of Present Illness Initial Comments: 08/30/19 13:39 Patient is a 34-year-old female with a history of hypertension and hypothyroidism who presents to the ED with complaint of anterior right ankle pain that she has had for the last 6 to 7 months. She states the pain is primarily when bending down or walking. She notices the pain primarily while at work and standing for long periods of time. She denies any numbness or tingling. She denies any known injury. She has been taking aspirin for her pain with little relief. The patient states she has no history of breaking that ankle or previous injury to that ankle. Past History - Medical History Allergies/Adverse Reactions: Allergies Allergy/AdvReac Type Severity Reaction Status Date / Time Penicillins Allergy Severe Difficulty Verified 01/01/19 17:43 Breathing pollen extracts Allergy Mild Itching Verified 01/01/19 17:43 dust Allergy Mild Itching Uncoded 01/01/19 17:43 Home Medications: Ambulatory Orders Levothyroxine [Synthroid -] 137 mcg PO DAILY 12/11/14 Salmeterol/Fluticasone [Advair 100Mcg/50Mcg -] 1 inh IH BID 01/29/16 Ferrous Sulfate 325 mg PO BID 03/19/16 Albuterol Sulfate Inhaler - [Ventolin HFA Inhaler -] 1 - 2 inh PO QID 12/15/17 Aspirin [ASA -] 81 mg PO DAILY 12/15/17 Cetirizine HCl [Zyrtec -] 10 mg PO DAILY 12/15/17 Labetalol HCl [Normodyne -] 200 mg PO BID 12/30/17 Acetaminophen [Tylenol .Regular Strength -] 650 mg PO Q6H PRN tablet 12/31/17 Nifedipine ER [Procardia XL -] 30 mg PO DAILY #30 tab.er.24 12/31/17 Naproxen [Naprosyn] 500 mg PO BID PRN #20 tablet 08/30/19 Asthma: Yes Cancer: No Cardiac Disorders: No COPD: No CHF: No Diabetes: No HTN: Yes Seizures: No Thyroid Disease: Yes (Hypothyroidism - on meds) - Surgical History Cholecystectomy: No Neurologic Surgery: No - Immunization History Immunization Up to Date: Yes - Psycho-Social/Smoking History Smoking History: Current every day smoker Have you smoked in the past 12 months: No Number of Cigarettes Smoked Daily: 5 Information on smoking cessation initiated: No - Substance Abuse Hx (Audit-C & DAST Scrn) How often the patient has a drink containing alcohol: Never Score: In Men: 4 or > Positive; In Women: 3 or > Positive: 0 Screen Result (Pos requires Nsg. Audit-10AR): Negative In the last yr the pt used illegal drug/Rx for NonMed reason: No Score: Yes response is considered Positive: 0 Screen Result (Positive result requires Nsg. DAST-10): Negative Review of Systems - Review of Systems Comments:: 08/30/19 13:40 - Review of Systems Able to Perform ROS?: Yes Constitutional: No: Fever, Chills, Loss of Appetite, Night Sweats, Weakness HEENTM: No: Eye Pain, Vision changes, Ear Pain, Throat Pain, Throat Swelling, Mouth Pain, Difficulty Swallowing Respiratory: No: Cough, Shortness of Breath, Wheezing, Sputum Production Cardiac (ROS): No: Chest Pain, Chest Tightness, Palpitations, Irregular Heart Beat, Edema ABD/GI: No: Nausea, Vomiting, Abdominal Pain, Diarrhea : No Dysuria, No Hematuria, No Frequency, No Urgency Musculoskeletal: No: Muscle Pain, Back Pain, Muscle Weakness, Neck Pain; positive: Right anterior ankle pain Integumentary: No: Lesions, Rash Neurological: No: Headache, Numbness, Tingling, Weakness, Speech Difficulties *Physical Exam - Vital Signs Last Vital Signs Temp Pulse Resp BP Pulse Ox 98.3 F 110 H 20 168/101 H 100 08/30/19 12:51 08/30/19 12:51 08/30/19 12:51 08/30/19 12:51 08/30/19 12:51 - Physical Exam 08/30/19 13:40 - Physical Exam General Appearance: Nourished, Appropriately Dressed, No Distress HEENT: EOMI, Normal Voice, Hearing Grossly Normal Neck: Supple, No Lymphadenopathy (R), No Lymphadenopathy (L), No Rigidity, No Decreased range of motion Respiratory/Chest: Lungs Clear, Normal Breath Sounds. No Respiratory Distress, No Accessory Muscle Use Cardiovascular: Regular Rhythm, Regular Rate, S1, S2 Musculoskeletal: Normal Inspection. No Decreased Range of Motion; no reproducible right ankle tenderness to palpation. Full range of motion of the right ankle. DP and PT pulse palpable. EHL intact. Sensation intact distally to light touch. No obvious deformity appreciated. Extremity: Normal Capillary Refill, Normal Inspection Integumentary: Normal Color, Dry. 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 Plan: -Right ankle x-ray reviewed and no acute fracture or dislocation appreciated. -Patient has been made aware that she may have some arthritis or soft tissue abnormality of her right ankle. She can continue to weight-bear as tolerated and should follow-up with orthopedics for further evaluation and treatment. -We will send Naprosyn to the patient's pharmacy. -Patient understands and agrees with this treatment plan and she is stable for discharge. Discharge - Discharge Information Problems reviewed: Yes Clinical Impression/Diagnosis: Ankle pain, right Qualifiers: Chronicity: acute Qualified Code(s): M25.571 - Pain in right ankle and joints of right foot Condition: Stable Disposition: HOME - Additional Discharge Information Prescriptions: Naproxen [Naprosyn] 500 mg PO BID PRN #20 tablet PRN Reason: Pain - Follow up/Referral Referrals: Ricky Martinez DO [Staff Physician] - 1 week - Patient Discharge Instructions Patient Printed Discharge Instructions: DI for Ankle Pain Additional Instructions: Patient has been made aware that she can take Naprosyn for her pain but should take it with food. The Naprosyn was sent to her pharmacy. She should follow-up with an orthopedist for further evaluation and treatment as she may require an MRI or further evaluation. She understands and agrees with this treatment plan and she is stable for discharge. - Post Discharge Activity Work/Back to School Note: Back to Work
[2019-08-30 14:23] VITALS: BP 145/79
== END 2019-08-30 14:05 | disposition home or self-care (01) ==
LOC: JERFT 12:51
DX: M25.571 Pain in right ankle and joints of right foot (principal)
CPT/HCPCS: 73610-TC-RT-FY; 99283-25

== ENCOUNTER 2020-07-05 18:40 | Emergency (ER) | payer OTHER ==
[2020-07-05 18:49] VITALS: TEMP 98.2; BMI 40.6
[2020-07-05] MEDS ORDERED: predniSONE 20 MG TABLET (UD) PO ONE (19:27)
[2020-07-05] MEDS ORDERED: LIDOCAINE 5% TOPICAL PATCH TP ONE (19:27)
[2020-07-05] MEDS ORDERED: LIDOCAINE 5% TOPICAL PATCH ONE (19:41)
[2020-07-05] MEDS ORDERED: predniSONE 20 MG TABLET (UD) ONE (19:42)
[2020-07-05 20:31] VITALS: BP 150/86; PULSE 89
== END 2020-07-05 20:31 | disposition home or self-care (01) ==
LOC: JERFT 18:40
DX: M54.2 Cervicalgia (principal); M54.5 Low back pain
CPT/HCPCS: 72040-TC; 72100-TC-FY; 99284-25

== ENCOUNTER 2021-01-04 14:34 | Emergency (ER) | payer OTHER ==
[2021-01-04 14:47] VITALS: BP 170/89; PULSE 90; TEMP 98.4; BMI 44.4
== END 2021-01-04 14:57 | disposition home or self-care (01) ==
LOC: JERFT 14:34
DX: B02.9 Zoster without complications (principal)
CPT/HCPCS: 99281-25

== ENCOUNTER 2024-01-04 20:26 | Emergency (ER) | payer OTHER ==
[2024-01-04] MEDS ORDERED: ALBUTEROL SO4 2.5/IPRATROPIUM 0.5 INH SOL 3 ML VIAL.NEB. NEB ONE (20:32)
[2024-01-04 20:37] VITALS: RESP 18; TEMP 97.6; BMI 44.9
[2024-01-04] MEDS: ALBUTEROL SO4 2.5/IPRATROPIUM 0.5 INH SOL 3 ML VIAL.NEB. NEB ONE (20:56)
[2024-01-04] MEDS ORDERED: predniSONE 20 MG TABLET (UD) ONE (21:12)
[2024-01-04] MEDS ORDERED: predniSONE 10 MG TABLET (UD) ONE (21:13)
[2024-01-04] MEDS: predniSONE 20 MG TABLET (UD) PO ONE (21:16)
[2024-01-04 21:36] LABS: BASO % 0.8 % (0-2.0); EOS % 1.5 % (0-4.5); HEMOGLOBIN 12.3 GM/dL (10.7-15.3); LYMPH % 12.3 % (8-40); MCH 27.7 pg (25.7-33.7); MCHC 32.5 g/dl (32.0-36.0); MEAN CELL VOLUME 85.1 fl (80-96); MONO % 3.9 % (3.8-10.2); NEUT % 81.5 % (42.8-82.8); PLATELET COUNT 388 10^3/uL (134-434); RBC 4.46 M/mm3 (3.60-5.2); RDW 15.9 % (11.6-15.6)
[2024-01-04 22:55] LABS: ALBUMIN 4.5 g/dl (3.4-5.0); BLOOD UREA NITROGEN 20.3 mg/dL (7-18); CALCIUM 9.5 mg/dL (8.5-10.1)
[2024-01-04 22:59] LABS: CREATININE 1.5 mg/dL (0.55-1.3)
[2024-01-04 23:00] LABS: BILIRUBIN,TOTAL 0.6 mg/dL (0.2-1); TOT PROT 8.6 g/dl (6.4-8.2)
[2024-01-04] MEDS ORDERED: POTASSIUM CHLORIDE ORAL LIQUID 20 MEQ/15 ML ONE (23:09)
[2024-01-04 23:28] VITALS: BP 200/96; PULSE 84
[2024-01-04] MEDS: POTASSIUM CHLORIDE ORAL LIQUID 20 MEQ/15 ML PO ONE (23:29)
[2024-01-04] MEDS ORDERED: LABETALOL HCL 200 MG TABLET (FP) ONE (23:45)
[2024-01-04] MEDS: KCL 10 MEQ IVPB 10 MEQ/100 ML INFUS.BAG IVPB SCH (23:52)
[2024-01-04] MEDS: LABETALOL HCL 200 MG TABLET (FP) PO ONE (23:52)
[2024-01-05] MEDS ORDERED: ALBUTEROL SO4 2.5/IPRATROPIUM 0.5 INH SOL 3 ML VIAL.NEB. NEB SCH (08:00)
== END 2024-01-05 02:29 | disposition home or self-care (01) ==
LOC: JER 20:26
PROC: 3E0F7GC Introduction of Other Therapeutic Substance into Respiratory Tract, Via Natural or Artificial Opening (ICD-10-PCS; principal; 2024-01-04)
DX: J45.901 Unspecified asthma with (acute) exacerbation (principal); R07.89 Other chest pain
CPT/HCPCS: 36415; 80053; 84484; 85025; 93005; 93010; 99284-25

== ENCOUNTER 2024-03-25 04:44 | Inpatient (IN) | payer OTHER ==
[2024-03-25] MEDS ORDERED: ALBUTEROL SO4 2.5/IPRATROPIUM 0.5 INH SOL 3 ML VIAL.NEB. NEB ONE ×6 (04:55→23:11)
[2024-03-25] MEDS ORDERED: DEXAMETHASONE SOD PHOSPHATE 10 MG/1 ML VIAL ONE (05:24)
[2024-03-25] MEDS: ALBUTEROL SO4 2.5/IPRATROPIUM 0.5 INH SOL 3 ML VIAL.NEB. NEB ONE (05:28)
[2024-03-25] MEDS: DEXAMETHASONE SOD PHOSPHATE 10 MG/1 ML VIAL IM ONE (05:28)
[2024-03-25 05:53] LABS: VENOUS BASE EXCESS 1.6 mmol/L (-2-2); VENOUS O2 SATURATION 56.9 % (70-80); VENOUS PCO2 51.6 mmHg (38-52); VENOUS PH 7.353 (7.310-7.410)
[2024-03-25 05:55] LABS: HEMATOCRIT 35.8 % (32.4-45.2); HEMOGLOBIN 11.6 GM/dL (10.7-15.3); MCH 27.8 pg (25.7-33.7); MCHC 32.4 g/dl (32.0-36.0); MEAN CELL VOLUME 85.8 fl (80-96); MEAN PLT VOLUME 8.7 fl (7.5-11.1); PLATELET COUNT 268 10^3/uL (134-434); RBC 4.17 M/mm3 (3.60-5.2); RDW 16.2 % (11.6-15.6); WHITE BLOOD COUNT 10.9 K/mm3 (4.0-10.0)
[2024-03-25 06:24] LABS: ALBUMIN 3.9 g/dl (3.4-5.0); BLOOD UREA NITROGEN 21.3 mg/dL (7-18); CALCIUM 9.4 mg/dL (8.5-10.1); MAGNESIUM 2.3 mg/dL (1.8-2.4)
[2024-03-25 06:30] LABS: BILIRUBIN,TOTAL 1.1 mg/dL (0.2-1); TOT PROT 8.4 g/dl (6.4-8.2)
[2024-03-25] MEDS: SODIUM CHLORIDE 0.9% 500 ML INFUS.BAG IV ONE (06:47)
[2024-03-25] MEDS ORDERED: OSELTAMIVIR PHOSPHATE 75 MG CAPSULE ONE ×2 (06:54→21:47)
[2024-03-25] MEDS: OSELTAMIVIR PHOSPHATE 75 MG CAPSULE PO ONE (06:59)
[2024-03-25] MEDS ORDERED: MAGNESIUM SULFATE IN WATER 2 GM/50 ML IVPB IVPB ONE (07:12)
[2024-03-25] MEDS: MAGNESIUM SULF 50% (8.12 MEQ/2 ML-1 GM VIAL) IVPB ONE (07:17)
[2024-03-25] MEDS ORDERED: methylPREDNISolone NA SUCC 40 MG/1 ML VIAL ONE ×2 (08:11→13:51)
[2024-03-25] MEDS: ALBUTEROL SO4 2.5/IPRATROPIUM 0.5 INH SOL 3 ML VIAL.NEB. NEB SCH (08:15)
[2024-03-25] MEDS: methylPREDNISolone NA SUCC 40 MG/1 ML VIAL IVPUSH SCH ×2 (09:04→13:55)
[2024-03-25] MEDS: SODIUM CHLORIDE 1,000 ML IV STA (10:25)
[2024-03-25 11:12] LABS: POTASSIUM 3.6 mmol/L (3.5-5.1)
[2024-03-25 11:14] LABS: BLOOD UREA NITROGEN 22.1 mg/dL (7-18)
[2024-03-25] MEDS ORDERED: LABETALOL HCL 200 MG TABLET (FP) ONE ×2 (12:17→21:47)
[2024-03-25] MEDS: LABETALOL HCL 200 MG TABLET (FP) PO SCH (12:25)
[2024-03-25 12:30] LABS: ANISOCYTOSIS 0; HELMET CELLS 0; HOWELL-JOLLY BODIES 0; MACROCYTOSIS 0; OVALOCYTE 0; ROULEAU 0; SICKELED CELLS 0; TARGET CELLS 0; TEAR DROP CELLS 0; TOXIC GRANULATION 0
[2024-03-25] MEDS ORDERED: methylPREDNISolone NA SUCC 40 MG/1 ML VIAL IVPUSH SCH (13:00)
[2024-03-25] MEDS ORDERED: HEPARIN NA (PORCINE) 5,000 UNITS/ML 1ML VIAL ONE ×2 (13:51→21:47)
[2024-03-25] MEDS ORDERED: NIFEdipine E.R. 30 MG TABLET PO ONE (13:51)
[2024-03-25] MEDS: NIFEdipine E.R. 30 MG TABLET PO SCH (13:55)
[2024-03-25] MEDS: HEPARIN NA (PORCINE) 5,000 UNITS/ML 1ML VIAL SQ SCH (13:55)
[2024-03-25] MEDS: BUDESONIDE/FORMETEROL FUMARATE 160/4.5 mcg INHALER IH SCH (14:00)
[2024-03-25] MEDS ORDERED: ALBUTEROL SO4 0.083% IH SOL 2.5 MG/3 ML VIAL.NEB. NEB ONE ×2 (14:07→14:31)
[2024-03-25] MEDS ORDERED: ACETAMINOPHEN 500 MG TABLET (FP) ONE (14:08)
[2024-03-25] MEDS: ACETAMINOPHEN 500 MG TABLET (FP) PO PRN (14:17)
[2024-03-25] MEDS: ALBUTEROL SO4 0.083% IH SOL 2.5 MG/3 ML VIAL.NEB. NEB PRN (14:17)
[2024-03-25] MEDS ORDERED: MONTELUKAST NA 10 MG TABLET ONE (21:47)
[2024-03-25] MEDS ORDERED: HYDROCORTISONE SOD SUCCINATE 100 MG/2 ML VIAL ONE (21:48)
[2024-03-25] MEDS: OSELTAMIVIR PHOSPHATE 75 MG CAPSULE PO SCH (22:01)
[2024-03-25] MEDS: MONTELUKAST NA 10 MG TABLET PO SCH (22:01)
[2024-03-26 03:05] VITALS: BMI 45.0
[2024-03-26 07:25] LABS: HEMATOCRIT 32.1 % (32.4-45.2); HEMOGLOBIN 10.3 GM/dL (10.7-15.3); MCH 27.8 pg (25.7-33.7); MCHC 32.1 g/dl (32.0-36.0); MEAN CELL VOLUME 86.6 fl (80-96); MEAN PLT VOLUME 8.9 fl (7.5-11.1); PLATELET COUNT 251 10^3/uL (134-434); RBC 3.71 M/mm3 (3.60-5.2); RDW 15.9 % (11.6-15.6); WHITE BLOOD COUNT 17.4 K/mm3 (4.0-10.0)
[2024-03-26 07:44] LABS: ALBUMIN 3.6 g/dl (3.4-5.0); BLOOD UREA NITROGEN 34.4 mg/dL (7-18)
[2024-03-26 07:45] LABS: BILIRUBIN,TOTAL 0.6 mg/dL (0.2-1); TOT PROT 7.1 g/dl (6.4-8.2)
[2024-03-26 07:46] LABS: CALCIUM 8.8 mg/dL (8.5-10.1)
[2024-03-26 07:47] LABS: CREATININE 2.4 mg/dL (0.55-1.3); MAGNESIUM 3.1 mg/dL (1.8-2.4); PHOSPHOROUS 6.6 mg/dL (2.5-4.9)
[2024-03-26] MEDS: OSELTAMIVIR PHOSPHATE 30 MG CAPSULE PO SCH ×2 (21:34→21:45)
[2024-03-27] MEDS: ALBUTEROL SO4 0.5 % INH SOLN 2.5 MG/0.5 ML VIAL.NEB. NEB PRN (04:45)
[2024-03-27 07:35] LABS: HEMOGLOBIN 9.8 GM/dL (10.7-15.3); MCH 27.4 pg (25.7-33.7); MCHC 31.7 g/dl (32.0-36.0); MEAN CELL VOLUME 86.5 fl (80-96); MEAN PLT VOLUME 8.7 fl (7.5-11.1); PLATELET COUNT 267 10^3/uL (134-434); RBC 3.58 M/mm3 (3.60-5.2); RDW 15.9 % (11.6-15.6); WHITE BLOOD COUNT 19.3 K/mm3 (4.0-10.0)
[2024-03-27 08:00] LABS: POTASSIUM 4.2 mmol/L (3.5-5.1)
[2024-03-27 08:03] LABS: ALBUMIN 3.5 g/dl (3.4-5.0); BLOOD UREA NITROGEN 43.6 mg/dL (7-18); CALCIUM 8.5 mg/dL (8.5-10.1)
[2024-03-27 08:06] LABS: CREATININE 2.1 mg/dL (0.55-1.3)
[2024-03-27 08:07] LABS: BILIRUBIN,TOTAL 0.5 mg/dL (0.2-1)
[2024-03-27 08:08] LABS: TOT PROT 7.1 g/dl (6.4-8.2)
[2024-03-28 07:24] LABS: BASO % 0.1 % (0-2.0); HEMATOCRIT 32.9 % (32.4-45.2); HEMOGLOBIN 10.4 GM/dL (10.7-15.3); LYMPH % 9.8 % (8-40); MCH 27.5 pg (25.7-33.7); MCHC 31.7 g/dl (32.0-36.0); MEAN PLT VOLUME 8.8 fl (7.5-11.1); MONO % 3.3 % (3.8-10.2); NEUT % 86.8 % (42.8-82.8); PLATELET COUNT 276 10^3/uL (134-434); RBC 3.79 M/mm3 (3.60-5.2); RDW 15.8 % (11.6-15.6); WHITE BLOOD COUNT 19.7 K/mm3 (4.0-10.0)
[2024-03-28 07:28] LABS: POTASSIUM 4.9 mmol/L (3.5-5.1)
[2024-03-28 07:40] LABS: CALCIUM 8.8 mg/dL (8.5-10.1)
[2024-03-28 07:41] LABS: ALBUMIN 3.6 g/dl (3.4-5.0); BLOOD UREA NITROGEN 39.9 mg/dL (7-18)
[2024-03-28 07:43] LABS: MAGNESIUM 2.9 mg/dL (1.8-2.4)
[2024-03-28 07:44] LABS: CREATININE 1.9 mg/dL (0.55-1.3); PHOSPHOROUS 2.2 mg/dL (2.5-4.9)
[2024-03-28 07:46] LABS: BILIRUBIN,TOTAL 0.5 mg/dL (0.2-1); TOT PROT 7.4 g/dl (6.4-8.2)
[2024-03-28] MEDS: LEVOTHYROXINE SODIUM 100 MCG 5 ML VIAL IVPUSH ONE (10:00)
[2024-03-28] MEDS: NAPH,MB-DB/K PH,MBDB POWDER PACKET PO SCH (15:12)
[2024-03-28] MEDS: SODIUM PHOSPHATE - 15 MM in SODIUM CHLORIDE 250 ML IVPB ONE (17:56)
[2024-03-28] MEDS: OSELTAMIVIR PHOSPHATE 75 MG CAPSULE PO SCH (21:19)
[2024-03-29] MEDS: hydrALAZINE HCL 10 MG TABLET PO ONE (05:27)
[2024-03-29 07:24] LABS: HEMATOCRIT 32.3 % (32.4-45.2); HEMOGLOBIN 10.6 GM/dL (10.7-15.3); MCH 27.9 pg (25.7-33.7); MCHC 32.8 g/dl (32.0-36.0); MEAN CELL VOLUME 85.2 fl (80-96); MEAN PLT VOLUME 8.5 fl (7.5-11.1); PLATELET COUNT 268 10^3/uL (134-434); RBC 3.79 M/mm3 (3.60-5.2); RDW 15.9 % (11.6-15.6); WHITE BLOOD COUNT 17.8 K/mm3 (4.0-10.0)
[2024-03-29 07:46] LABS: POTASSIUM 4.7 mmol/L (3.5-5.1)
[2024-03-29 07:49] LABS: ALBUMIN 3.5 g/dl (3.4-5.0); CALCIUM 8.8 mg/dL (8.5-10.1)
[2024-03-29 07:50] LABS: BLOOD UREA NITROGEN 30.9 mg/dL (7-18); MAGNESIUM 2.6 mg/dL (1.8-2.4)
[2024-03-29 07:53] LABS: CREATININE 1.5 mg/dL (0.55-1.3); PHOSPHOROUS 2.6 mg/dL (2.5-4.9)
[2024-03-29 07:54] LABS: BILIRUBIN,TOTAL 0.5 mg/dL (0.2-1); TOT PROT 7.3 g/dl (6.4-8.2)
[2024-03-29] MEDS: LEVOTHYROXINE SODIUM 100 MCG 5 ML VIAL IVPUSH SCH (10:11)
[2024-03-29] MEDS: methylPREDNISolone NA SUCC 40 MG/1 ML VIAL IVPUSH SCH (12:47)
[2024-03-30 02:19] VITALS: RESP 20
[2024-03-30 06:34] LABS: HEMATOCRIT 35.2 % (32.4-45.2); MCH 27.2 pg (25.7-33.7); MCHC 31.3 g/dl (32.0-36.0); MEAN CELL VOLUME 86.8 fl (80-96); MEAN PLT VOLUME 8.4 fl (7.5-11.1); PLATELET COUNT 317 10^3/uL (134-434); RBC 4.06 M/mm3 (3.60-5.2); RDW 16.1 % (11.6-15.6); WHITE BLOOD COUNT 18.9 K/mm3 (4.0-10.0)
[2024-03-30 06:52] LABS: POTASSIUM 4.9 mmol/L (3.5-5.1)
[2024-03-30 06:55] LABS: ALBUMIN 3.6 g/dl (3.4-5.0); BLOOD UREA NITROGEN 26.4 mg/dL (7-18); MAGNESIUM 2.5 mg/dL (1.8-2.4)
[2024-03-30 06:58] LABS: PHOSPHOROUS 2.3 mg/dL (2.5-4.9)
[2024-03-30 06:59] LABS: CREATININE 1.5 mg/dL (0.55-1.3)
[2024-03-30 07:00] LABS: BILIRUBIN,TOTAL 0.5 mg/dL (0.2-1); TOT PROT 7.6 g/dl (6.4-8.2)
[2024-03-30] MEDS: NIFEdipine E.R. 30 MG TABLET PO SCH (09:49)
[2024-03-30] MEDS ORDERED: ALBUTEROL SO4 HFA INHALER IH PRN (11:33)
[2024-03-30] MEDS: NICOTINE 14 MG/24 HOURS TOPICAL PATCH TD SCH (13:46)
[2024-03-30 15:34] VITALS: BP 167/92; PULSE 73; TEMP 97.6
[2024-03-31] MEDS ORDERED: methylPREDNISolone NA SUCC 40 MG/1 ML VIAL IVPUSH SCH (10:00)
== END 2024-03-30 17:15 | disposition home or self-care (01) | DRG 133 ==
LOC: JER 04:44 → JERBED 06:52 → OBSVTOIN 11:36 → J2W 03-26 02:25
PROVIDERS: ADMIT Internal Medicine; ATTEND Internal Medicine
DX: J96.01 Acute respiratory failure with hypoxia (principal); J10.1 Influenza due to other identified influenza virus with other respiratory manifestations; I16.0 Hypertensive urgency; E03.9 Hypothyroidism, unspecified; J45.901 Unspecified asthma with (acute) exacerbation; N17.9 Acute kidney failure, unspecified; E66.01 Morbid (severe) obesity due to excess calories; Z68.42 Body mass index [BMI] 45.0-49.9, adult; F17.200 Nicotine dependence, unspecified, uncomplicated; I12.9 Hypertensive chronic kidney disease with stage 1 through stage 4 chronic kidney disease, or unspecified chronic kidney disease; N18.9 Chronic kidney disease, unspecified; E83.39 Other disorders of phosphorus metabolism
CPT/HCPCS: 0241U-QW; 36415; 71045-TC-FY; 76775-TC; 80048; 80053; 82570; 82803; 82962; 83036; 83520; 83605; 83735; 84100; 84439; 84443; 84481; 85025; 85027; 86376; 86800; 87070; 87205; 93005; 93010; 93306-TC; 94640; 94660; 99285-25; G0378; J1100; J1644